=== PATIENT | female | born 1960 | race Caucasian/White ===

== ENCOUNTER 2020-01-24 14:15 | Observation (INO) | payer OTHER, MEDICAID, SELFPAY ==
[2020-01-24] VITALS (8 sets, daily range): BP systolic 130–164; BP diastolic 72–92; PULSE 62–92; RESP 12–20; TEMP 35.3–37.2; O2SAT 91–100; BMI 18.0
[2020-01-24 15:05] LABS: Add Manual Diff / Slide Review NO; Basophils Absolute Auto 100 /uL (0-100); Basophils Percent Auto 1.1 % (0-2); Eosinophils Absolute Auto 100 /uL (0-450); Eosinophils Percent Auto 1.5 % (2-4); Hematocrit 22.9 % (36-46); Lymphocytes Absolute Auto 2600 /uL (1100-4500); Mean Corpuscular HGB Conc 29.1 % (30-36); Mean Corpuscular Hemoglobin 18.1 PG (26-34); Mean Corpuscular Volume 62.2 fL (80-100); Monocytes Absolute Auto 500 /uL (0-900); Monocytes Percent Auto 8.4 % (3-14); Neutrophils Absolute Auto 2700 /uL (1500-7000); Platelet Count 300 X10^3/uL (150-400); Red Blood Cell Count 3.69 X10^6/uL (4.0-5.2); Red Cell Distribution Width 22.1 % (11.6-14.8)
[2020-01-24 15:10] LABS: Hemoglobin 6.7 g/dL (12.0-16.0); INR 1.1 (0.9-1.3); Prothrombin Time 12.6 SECONDS (10.1-12.7)
[2020-01-24 15:13] LABS: PTT Partial Thromboplastin Tim 31 SECONDS (26.4-36.2)
[2020-01-24 15:15] LABS: Alanine Aminotransferase 12 IU/L (<35); Albumin 4.1 g/dL (3.5-5.0); Albumin Globulin Ratio 1.2 (1.0-2.8); Alkaline Phosphatase 96 U/L (38-126); Amylase 138 U/L (30-110); Aspartate Aminotransferase 23 IU/L (14-36); Bilirubin Total 0.5 mg/dL (0.2-1.3); Blood Urea Nitrogen 8 mg/dL (7-17); Calcium 9.1 mg/dL (8.4-10.2); Carbon Dioxide 25 mmol/L (22-32); Chloride 106 mmol/L (98-107); Creatine Kinase 38 U/L (30-135); Estimated Glomerular Filt Rate > 60.0 mL/min (>60); Globulin 3.3 g/dL (1.7-4.1); Glucose 99 mg/dL (70-100); HEMOLYSIS < 15 (0-50); Lipase 140 U/L (23-300); Potassium 3.9 mmol/L (3.4-5.1); Sodium 139 mmol/L (137-145); Total Protein 7.4 g/dL (6.3-8.2)
[2020-01-24 15:22] LABS: Hypochromasia 2+; Stomatocytes 1+; Target Cells 1+
[2020-01-24 15:23] LABS: Anisocytosis 2+
[2020-01-24 15:24] LABS: Microcytosis 2+; Ovalocytes 2+; Platelet Estimate Adequate on smear; Poikilocytosis 1+; Spherocytes 1+
[2020-01-24 15:26] LABS: Troponin I < 0.012 ng/mL (0.01-0.034)
[2020-01-24 15:57] LABS: Thyroid Stimulating Hormone 1.39 uIU/mL (0.47-4.68)
--- NOTE | 2020-01-24 16:22 | DI.CT.S_ITS ---
PROCEDURE: CT ABDOMEN PELVIS W CON INDICATIONS: abd pain TECHNIQUE: After the administration of intravenous contrast, 5 mm thick sections acquired from the diaphragm to the symphysis. 5 mm coronal and sagittal reformats were acquired. For radiation dose reduction, the following was used: automated exposure control, adjustment of mA and/or kV according to patient size. COMPARISON: None. FINDINGS: Image quality: Excellent. ABDOMEN: Lung bases: Lung bases are clear. Heart size is normal. Solid organs: Liver is normal in size and enhancement. Gallbladder appears normal. Biliary system is non dilated. Pancreas enhances normally. Spleen is normal in size and enhancement. No adrenal nodules. Kidneys demonstrate normal size and enhancement, without hydronephrosis. Peritoneum and bowel: Bowel loops demonstrate normal wall thickness and caliber. No free fluid or air. There is generalize colonic obstipation. Nodes and vessels: No retroperitoneal or mesenteric adenopathy by size criteria. Aorta and inferior vena cava are normal in size. Miscellaneous: No ventral hernias. PELVIS: Genitourinary: Bladder wall thickness is normal. Miscellaneous: No inguinal hernias or adenopathy. Generalize colonic obstipation. Bones: No suspicious bony lesions. No vertebral body compression fractures. IMPRESSION: Generalized colonic obstipation, no acute disease found. No alternative etiology for generalized malaise is found by this study. Dictated by: Serge Birmingham M.D. on 01/24/2020 at 17:27 Approved by: Serge Birmingham M.D. on 01/24/2020 at 17:28
[2020-01-24 16:37] LABS: Ethanol (ETOH) < 10 mg/dL
[2020-01-24] MEDS: ONDANSETRON 4 MG/2 ML INJ IV (16:56)
[2020-01-24] MEDS: SODIUM CHLORIDE 0.9% 1,000 ML 1000 ML IV (17:54)
[2020-01-24] MEDS: HYDROMORPHONE 0.5 MG INJ IV (19:13)
[2020-01-24] MEDS: PANTOPRAZOLE 40 MG VIAL IV (19:13)
--- NOTE | 2020-01-24 19:55 | PM.CN ---
History of Present Illness Consult details Date Patient Seen: 01/24/20 Time Patient Seen: 19:55 Chief complaint: Stomach pain, weight loss Reason for consult: Possible GI bleed/anemia Requesting provider: Cady Alex Narrative: The patient is a woman who is been having various abdominal stomach complaints. She has lost 20 lb over the last month according to her and her daughter who was with her. The patient admits to having abdominal pain in then intermittent black bowel movements when she is constipated. She also sees blood occasionally. She actually had a colonoscopy last year when she was in [place]. She reports that it was normal but they told her they wanted to repeated in 6 months. She does not recall exactly where an [facility] she had the test done or who performed it. She is unaware of having any records related to it that might give us some information. She is not on the Internet with it. Her pain is nonspecific and crampy in nature frequently. It is mostly left abdomen but sometimes right abdomen. She denies any abdominal procedures. She has had no hematemesis. Meds Home Medications and Allergies Home Medications Medication Instructions Recorded Confirmed Type No Known Home Medications 01/24/20 01/24/20 History Allergies Allergy/AdvReac Type Severity Reaction Status Date / Time No Known Drug Allergies Allergy Verified 01/24/20 15:16 Review of Systems Review of Systems Narrative: Patient denies visual difficulties or double vision. No swallowing problems. She has been feeling generally weak and fatigued and wants to sleep a lot. Not always hungry. Has lost 20 lb due to abdominal discomfort and lack of appetite. No tooth aches. No asthma or cough. No heart problems or chest pain. No murmurs. No problems with kidney stones or blood in her urine. No seizures or blackouts. She drinks about 2-3 cans of beer every other day. Sometimes daily. Very long history of smoking quit 2 months ago. Exam Vital Signs (past 8 hours): - 01/24/20 14:29 01/24/20 17:15 Temperature 98.3 F Pulse Rate 91 H 92 H Respiratory Rate 12 16 Blood Pressure 164/92 H Blood Pressure [Right Arm] 140/85 Pulse Oximetry 91 100 Oxygen Delivery Method Room Air Narrative Exam Narrative: Very thin woman no apparent distress. Her eyes are nonicteric. Pupils equal round reactive to light ears without lesion. Skin is pale. No open wounds appreciated. Oral mucosa is dry. No open lesions. I do not feel any nodes in the neck or supraclavicular areas. Note masses. Lungs are clear to auscultation without rales or rhonchi. Equal percussion. Heart regular rate and rhythm. She has a split S2. Her abdomen is scaphoid soft. Mild tenderness in the left abdomen. No palpable masses. No hernias appreciated. Patient is alert and oriented. A bit anxious. Speech rate and content are appropriate and her affect is appropriate until I began to talk to her about some interventions. Please see below. Objective Imaging CT scan - abdomen: My impression: Large amount of stool in the colon. I do not really see any other abnormalities. Very little fat. Labs Result Diagrams: 01/24/20 14:55 01/24/20 14:55 Labs: Laboratory Results - last 24 hr 01/24/20 01/24/20 01/24/20 14:55 14:55 14:55 WBC 6.0 RBC 3.69 L Hgb 6.7 L* Hct 22.9 L MCV 62.2 L MCH 18.1 L MCHC 29.1 L RDW 22.1 H Plt Count 300 Neut % (Auto) 45.0 L Lymph % (Auto) 44.0 H Crosby % (Auto) 8.4 Eos % (Auto) 1.5 L Baso % (Auto) 1.1 Neut # (Auto) 2700 Lymph # (Auto) 2600 Crosby # (Auto) 500 Eos # (Auto) 100 Baso # (Auto) 100 Platelet Estimate Adequate on smear RBC Morphology See below Hypochromasia 2+ H Poikilocytosis 1+ H Anisocytosis 2+ H Microcytosis 2+ H Spherocytes 1+ H Target Cells 1+ H Ovalocytes 2+ H Stomatocytes 1+ H PT 12.6 INR 1.1 APTT 31 Sodium 139 Potassium 3.9 Chloride 106 Carbon Dioxide 25 BUN 8 Creatinine 0.50 L Estimated GFR > 60.0 BUN/Creatinine Ratio 16.0 Glucose 99 Calcium 9.1 Total Bilirubin 0.5 AST 23 ALT 12 Alkaline Phosphatase 96 Total Creatine Kinase 38 CK-MB (CK-2) TNP CK-MB (CK-2) Rel Index TNP Troponin I < 0.012 Total Protein 7.4 Albumin 4.1 Globulin 3.3 Albumin/Globulin Ratio 1.2 Amylase 138 H Lipase 140 TSH Ethyl Alcohol Blood Type Antibody Screen Crossmatch 01/24/20 01/24/20 01/24/20 14:55 14:55 14:55 WBC RBC Hgb Hct MCV MCH MCHC RDW Plt Count Neut % (Auto) Lymph % (Auto) Crosby % (Auto) Eos % (Auto) Baso % (Auto) Neut # (Auto) Lymph # (Auto) Crosby # (Auto) Eos # (Auto) Baso # (Auto) Platelet Estimate RBC Morphology Hypochromasia Poikilocytosis Anisocytosis Microcytosis Spherocytes Target Cells Ovalocytes Stomatocytes PT INR APTT Sodium Potassium Chloride Carbon Dioxide BUN Creatinine Estimated GFR BUN/Creatinine Ratio Glucose Calcium Total Bilirubin AST ALT Alkaline Phosphatase Total Creatine Kinase CK-MB (CK-2) CK-MB (CK-2) Rel Index Troponin I Total Protein Albumin Globulin Albumin/Globulin Ratio Amylase Lipase TSH 1.39 Ethyl Alcohol < 10 Blood Type O Positive Antibody Screen Negative Crossmatch See Detail Assessment & Plan Assessment & Plan narrative: Patient with significant anemia and abdominal complaints. She had a recent CT scan within the last year. She reports that it was normal. The patient has intermittent melena. Intermittent abdominal pain that is crampy in nature and suffers from constipation at times. I began to talk to her about having an upper endoscopy. She completely decompensated and became tearful and crying out and that she did not want anything put in her throat. I tried to calm her and explained to her that this was far less invasive or painful or problematic than having a colonoscopy but she would not here of it. She continued to insist that she would not have it done. She would not have anything put down her throat. It is not clear to me that she needs a colonoscopy and I would like to obtain that record before beginning of to do 1 on her. I do think she would definitely benefit from an EGD but if she continues to refuse then an upper GI could be ordered. The only problem with such a test is that if any other test needs to be done that material would have to clear her intestinal tract before that could happen. If they could do a useful study with a water-soluble material it may well act as a cathartic and clear her colon and allow us to further evaluate her. I informed the patient that my partner probably Dr. Morse would be looking in on her tomorrow.
--- NOTE | 2020-01-24 20:17 | ED.ABDPAIN ---
HPI - Abdominal Pain <MARIAELENA Maxwell - Last Filed: 01/24/20 20:28> General Chief Complaint: Abdominal Pain Stated Complaint: Stomach pain, weight loss Time Seen by Provider: 01/24/20 14:24 Source: patient and family Mode of arrival: Ambulatory Limitations: no limitations History of Present Illness HPI narrative: The patient is a 59-year-old female with history of hepatitis-A, who drinks 3-4 beers a night who presents with a chief complaint of abdominal pain for the past several months. She states that her stomach has been ?bubbling.She states that she had a colonoscopy where they recommended 6 month follow-up colonoscopy but she did not do that because of lack of insurance. She complains of nausea, no vomiting, no fevers. She complains of epigastric tenderness but no chest pain or shortness of breath. She presents with her daughter. She denies any daily medications, denies any surgical history denies any abdominal history. Related Data Home Medications Medication Instructions Recorded Confirmed No Known Home Medications 01/24/20 01/24/20 Allergies Allergy/AdvReac Type Severity Reaction Status Date / Time No Known Drug Allergies Allergy Verified 01/24/20 15:16 Review of Systems <MARIAELENA Maxwell - Last Filed: 01/24/20 20:28> Review of Systems Narrative: GENERAL: Denies chills, fatigue, malaise, fever, sweats. HEENT: Denies sinus pain, ear pain, sore throat, difficulty swallowing, dizziness. RESPIRATORY: Denies dyspnea, cough, wheezing, hemoptysis, sputum. CARDIOVASCULAR: Denies chest pain, palpitations, orthopnea, edema, GASTROINTESTINAL: See HPI : Denies dysuria, frequency, incontinence, hematuria, urinary retention. MUSCULOSKELETAL: denies weakness, joint pain, or bony pain SKIN: Denies rash, skin lesions, or other NEUROLOGIC: Denies weakness, headache, numbness, change in speech, confusion, seizures, incoordination. PSYCHIATRIC: No concerning psychosocial issues. 12 point review of systems is negative except for those stated above Patient History <MARIAELENA Maxwell - Last Filed: 01/24/20 20:28> Medical History (Updated 01/24/20 @ 21:36 by MARIAELENA Maxwell) Constipation (Acute) Postmenopausal (Acute) Surgical History (Updated 01/24/20 @ 21:29 by MAHAMED Chavez) History of colonoscopy (Acute) Family History (Updated 01/24/20 @ 21:31 by MAHAMED Chavez) Mother Cancer Lung disease Smoker Father Schizophrenia Brother Homeless Schizophrenia Substance abuse Social History household members: family Smoking Status: Former smoker Tobacco: How many years used: 40 alcohol intake: current Smoking Status: Former smoker (Stop smoking 2 months ago. Began at age 17) Exam <MARIAELENA Maxwell - Last Filed: 01/24/20 20:28> Narrative Exam Narrative: GENERAL: Pale female lying on stretcher, appears older than stated age HEAD: Atraumatic. Normocephalic. No temporal or scalp tenderness. EYES: Pupils equal round and reactive. Extraocular motions intact. No scleral icterus. No injection or drainage. ENT: Nose without bleeding, purulent drainage or septal hematoma. Throat without erythema, tonsillar hypertrophy or exudate. Uvula midline. Airway patent. NECK: Trachea midline. No JVD or lymphadenopathy. Supple, nontender, no meningeal signs. CARDIOVASCULAR: Regular rate and rhythm RESPIRATORY: Clear to auscultation. Breath sounds equal bilaterally. No wheezes, rales, or rhonchi. No cough. No increased respiratory effort. No accessory muscle use GASTROINTESTINAL: Abdomen soft, diffusely tender, nondistended. No hepato-splenomegaly, or palpable masses. No guarding. Active bowel sounds all 4 quadrants Heme-positive stool. Done with Luis DELGADO at bedside. EXTREMITIES: No clubbing, cyanosis, or edema. No joint tenderness, effusion, or edema noted. BACK: Nontender without deformity or crepitance. No flank tenderness. NEURO: AOx3. SKIN: No rash or erythema on visible skin. Initial Vital Signs Initial Vital Signs: Vital Signs Temperature 98.3 F 01/24/20 14:29 Pulse Rate 91 H 01/24/20 14:29 Respiratory Rate 12 01/24/20 14:29 Blood Pressure 164/92 H 01/24/20 14:29 Pulse Oximetry 91 01/24/20 14:29 <Cady Cevallos DO - Last Filed: 01/25/20 19:23> Initial Vital Signs Initial Vital Signs: Vital Signs Temperature 98.3 F 01/24/20 14:29 Pulse Rate 91 H 01/24/20 14:29 Respiratory Rate 12 01/24/20 14:29 Blood Pressure 164/92 H 01/24/20 14:29 Pulse Oximetry 91 01/24/20 14:29 Procedures <MARIAELENA Maxwell - Last Filed: 01/24/20 20:28> Stool Hemoccult Procedural Steps Taken: stool placed in appropriate test area, developer placed on stool and control areas and controls appropriately positive and negative Hemoccult result: positive Course <MARIAELENA Maxwell - Last Filed: 01/24/20 20:28> Orders Ordered: Acetaminophen (Tylenol) 650 mg PO Q6HR PRN PRN Reason: Fever > 100.4 Last Admin: 01/25/20 14:00 Dose: 650 mg Documented by: POWER Acetaminophen (Tylenol) 975 mg PO Q8H PRN PRN Reason: Pain, Mild (1-3) Bisacodyl (Dulcolax) 10 mg DC DAILY PRN PRN Reason: Constipation Docusate Sodium (Colace) 100 mg PO BID [facility] Last Admin: 01/25/20 10:47 Dose: 100 mg Documented by: Admin: 01/24/20 21:55 Dose: 100 mg Documented by: MJUDD Ferrous Sulfate (Ferrous Sulfate) 325 mg PO DAILY [facility] Pantoprazole Sodium (Protonix) 40 mg IV BID [facility] Last Admin: 01/25/20 10:48 Dose: 40 mg Documented by: JOY Polyethylene Glycol (Miralax) 17 gm PO DAILY [facility] Discontinued Medications Acetaminophen (Tylenol) 650 mg PO Q6HR PRN PRN Reason: Fever/Mild Pain (1-3) Bisacodyl (Dulcolax) 10 mg DC NOW ONE Stop: 01/24/20 21:16 Last Admin: 01/24/20 23:18 Dose: Not Given Documented by: DIXIE Bisacodyl (Dulcolax) 10 mg PO NOW ONE Stop: 01/25/20 00:09 Last Admin: 01/25/20 00:33 Dose: 10 mg Documented by: DIXIE Ferrous Sulf[facility] ([facility]ous Sulfate) [facility] Last Admin: 01/25/20 18:02 Dose: Not Given Documented by: Admin: 01/25/20 10:47 Dose: 325 mg Documented by: JOY Hydromorphone HCl (Dilaudid) 0.5 mg IV NOW ONE Stop: 01/24/20 18:59 Last Admin: 01/24/20 19:13 Dose: 0.5 mg Documented by: EVELYN Sodium Chloride (Normal Saline 0.9%) 1,000 mls @ 1,000 mls/hr IV BOLUS ONE Stop: 01/24/20 18:06 Last Infusion: 01/24/20 20:43 Dose: 0 mls/hr Documented by: Admin: 01/24/20 17:54 Dose: 1,000 mls/hr Documented by: EVELYN Lactated Ringer's (Lactated Ringers) 1,000 mls @ 100 mls/hr IV CONT [facility] Ketorolac Tromethamine (Toradol) 15 mg IV Q6HR PRN PRN Reason: Pain, Moderate (4-6) Stop: 01/29/20 21:11 Ondansetron HCl (Zofran) 4 mg IV NOW ONE Stop: 01/24/20 16:47 Last Admin: 01/24/20 16:56 Dose: 4 mg Documented by: EVELYN Pantoprazole Sodium (Protonix) 40 mg IV NOW ONE Stop: 01/24/20 18:59 Last Admin: 01/24/20 19:13 Dose: 40 mg Documented by: EVELYN Pantoprazole Sodium (Protonix) 40 mg PO BID [facility] Sodium Biphosphate/Sodium Phosphate (Fleet Enema) 1 each DC NOW ONE Stop: 01/24/20 22:10 Last Admin: 01/24/20 22:47 Dose: 1 each Documented by: MJUDD Vital Signs Vital signs: Vital Signs - 8 hr 01/24/20 14:29 01/24/20 17:15 01/24/20 20:15 Temperature 98.3 F 98.4 F Pulse Rate 91 H 92 H 79 Respiratory Rate 12 16 15 Blood Pressure 164/92 H 131/77 Blood Pressure [Right Arm] 140/85 Pulse Oximetry 91 100 <Cady Cevallos DO - Last Filed: 01/25/20 19:23> Orders Ordered: Acetaminophen (Tylenol) 650 mg PO Q6HR PRN PRN Reason: Fever > 100.4 Last Admin: 01/25/20 14:00 Dose: 650 mg Documented by: POWER Acetaminophen (Tylenol) 975 mg PO Q8H PRN PRN Reason: Pain, Mild (1-3) Bisacodyl (Dulcolax) 10 mg DC DAILY PRN PRN Reason: Constipation Docusate Sodium (Colace) 100 mg PO BID [facility] Last Admin: 01/25/20 10:47 Dose: 100 mg Documented by: Admin: 01/24/20 21:55 Dose: 100 mg Documented by: MJUDD Ferrous Sulfate (Ferrous Sulfate) 325 mg PO DAILY [facility] Pantoprazole Sodium (Protonix) 40 mg IV BID [facility] Last Admin: 01/25/20 10:48 Dose: 40 mg Documented by: JOY Polyethylene Glycol (Miralax) 17 gm PO DAILY [facility] Discontinued Medications Acetaminophen (Tylenol) 650 mg PO Q6HR PRN PRN Reason: Fever/Mild Pain (1-3) Bisacodyl (Dulcolax) 10 mg DC NOW ONE Stop: 01/24/20 21:16 Last Admin: 01/24/20 23:18 Dose: Not Given Documented by: DIXIE Bisacodyl (Dulcolax) 10 mg PO NOW ONE Stop: 01/25/20 00:09 Last Admin: 01/25/20 00:33 Dose: 10 mg Documented by: DIXIE Ferrous Sulfate (Ferrous Sulfate) 325 mg PO BIDWM [facility] Last Admin: 01/25/20 18:02 Dose: Not Given Documented by: Admin: 01/25/20 10:47 Dose: 325 mg Documented by: JOY Hydromorphone HCl (Dilaudid) 0.5 mg IV NOW ONE Stop: 01/24/20 18:59 Last Admin: 01/24/20 19:13 Dose: 0.5 mg Documented by: EVELYN Sodium Chloride (Normal Saline 0.9%) 1,000 mls @ 1,000 mls/hr IV BOLUS ONE Stop: 01/24/20 18:06 Last Infusion: 01/24/20 20:43 Dose: 0 mls/hr Documented by: Admin: 01/24/20 17:54 Dose: 1,000 mls/hr Documented by: EVELYN Lactated Ringer's (Lactated Ringers) 1,000 mls @ 100 mls/hr IV CONT [facility] Ketorolac Tromethamine (Toradol) 15 mg IV Q6HR PRN PRN Reason: Pain, Moderate (4-6) Stop: 01/29/20 21:11 Ondansetron HCl (Zofran) 4 mg IV NOW ONE Stop: 01/24/20 16:47 Last Admin: 01/24/20 16:56 Dose: 4 mg Documented by: EVELYN Pantoprazole Sodium (Protonix) 40 mg IV NOW ONE Stop: 01/24/20 18:59 Last Admin: 01/24/20 19:13 Dose: 40 mg Documented by: EVELYN Pantoprazole Sodium (Protonix) 40 mg PO BID [facility] Sodium Biphosphate/Sodium Phosphate (Fleet Enema) 1 each DC NOW ONE Stop: 01/24/20 22:10 Last Admin: 01/24/20 22:47 Dose: 1 each Documented by: MJUDD Vital Signs Vital signs: Vital Signs - 8 hr 01/24/20 14:29 01/24/20 17:15 01/24/20 20:15 Temperature 98.3 F 98.4 F Pulse Rate 91 H 92 H 79 Respiratory Rate 12 16 15 Blood Pressure 164/92 H 131/77 Blood Pressure [Right Arm] 140/85 Pulse Oximetry 91 100 MDM - Abdominal Pain <MARIAELENA Maxwell - Last Filed: 01/24/20 20:28> Lab Data Result diagrams: 01/25/20 06:24 01/25/20 06:24 Labs: Lab Results 01/24/20 01/24/20 01/24/20 Range/Units 14:55 14:55 14:55 WBC 6.0 (4.5-11.0) X10^3/uL RBC 3.69 L (4.0-5.2) X10^6/uL Hgb 6.7 L* (12.0-16.0) g/dL Hct 22.9 L (36-46) % MCV 62.2 L (80-100) fL MCH 18.1 L (26-34) PG MCHC 29.1 L (30-36) % RDW 22.1 H (11.6-14.8) % Plt Count 300 (150-400) X10^3/uL Neut % (Auto) 45.0 L (50-75) % Lymph % (Auto) 44.0 H (25-40) % Banner % (Auto) 8.4 (3-14) % Eos % (Auto) 1.5 L (2-4) % Baso % (Auto) 1.1 (0-2) % Neut # (Auto) 2700 (2538-7110) /uL Lymph # (Auto) 2600 (7366-2935) /uL Banner # (Auto) 500 (0-900) /uL Eos # (Auto) 100 (0-450) /uL Baso # (Auto) 100 (0-100) /uL Platelet Estimate Adequate on smear RBC Morphology See below Hypochromasia 2+ H Poikilocytosis 1+ H Anisocytosis 2+ H Microcytosis 2+ H Spherocytes 1+ H Target Cells 1+ H Ovalocytes 2+ H Stomatocytes 1+ H PT 12.6 (10.1-12.7) SECONDS INR 1.1 (0.9-1.3) APTT 31 (26.4-36.2) SECONDS Sodium 139 (137-145) mmol/L Potassium 3.9 (3.4-5.1) mmol/L Chloride 106 (98-107) mmol/L Carbon Dioxide 25 (22-32) mmol/L BUN 8 (7-17) mg/dL Creatinine 0.50 L (0.52-1.04) mg/dL Estimated GFR > 60.0 (>60) mL/min BUN/Creatinine Ratio 16.0 (6-22) Glucose 99 (70-100) mg/dL Calcium 9.1 (8.4-10.2) mg/dL Magnesium (1.6-2.3) mg/dL Total Bilirubin 0.5 (0.2-1.3) mg/dL AST 23 (14-36) IU/L ALT 12 (<35) IU/L Alkaline Phosphatase 96 (38-126) U/L Total Creatine Kinase 38 (30-135) U/L CK-MB (CK-2) TNP CK-MB (CK-2) Rel Index TNP Troponin I < 0.012 (0.01-0.034) ng/mL Total Protein 7.4 (6.3-8.2) g/dL Albumin 4.1 (3.5-5.0) g/dL Globulin 3.3 (1.7-4.1) g/dL Albumin/Globulin Ratio 1.2 (1.0-2.8) Amylase 138 H (30-110) U/L Lipase 140 (23-300) U/L TSH (0.47-4.68) uIU/mL Ethyl Alcohol ( - 10) mg/dL Blood Type Antibody Screen Crossmatch 01/24/20 01/24/20 01/24/20 Range/Units 14:55 14:55 14:55 WBC (4.5-11.0) X10^3/uL RBC (4.0-5.2) X10^6/uL Hgb (12.0-16.0) g/dL Hct (36-46) % MCV (80-100) fL MCH (26-34) PG MCHC (30-36) % RDW (11.6-14.8) % Plt Count (150-400) X10^3/uL Neut % (Auto) (50-75) % Lymph % (Auto) (25-40) % Banner % (Auto) (3-14) % Eos % (Auto) (2-4) % Baso % (Auto) (0-2) % Neut # (Auto) (1279-2784) /uL Lymph # (Auto) (2318-7239) /uL Banner # (Auto) (0-900) /uL Eos # (Auto) (0-450) /uL Baso # (Auto) (0-100) /uL Platelet Estimate RBC Morphology Hypochromasia Poikilocytosis Anisocytosis Microcytosis Spherocytes Target Cells Ovalocytes Stomatocytes PT (10.1-12.7) SECONDS INR (0.9-1.3) APTT (26.4-36.2) SECONDS Sodium (137-145) mmol/L Potassium (3.4-5.1) mmol/L Chloride (98-107) mmol/L Carbon Dioxide (22-32) mmol/L BUN (7-17) mg/dL Creatinine (0.52-1.04) mg/dL Estimated GFR (>60) mL/min BUN/Creatinine Ratio (6-22) Glucose (70-100) mg/dL Calcium (8.4-10.2) mg/dL Magnesium (1.6-2.3) mg/dL Total Bilirubin (0.2-1.3) mg/dL AST (14-36) IU/L ALT (<35) IU/L Alkaline Phosphatase (38-126) U/L Total Creatine Kinase (30-135) U/L CK-MB (CK-2) CK-MB (CK-2) Rel Index Troponin I (0.01-0.034) ng/mL Total Protein (6.3-8.2) g/dL Albumin (3.5-5.0) g/dL Globulin (1.7-4.1) g/dL Albumin/Globulin Ratio (1.0-2.8) Amylase (30-110) U/L Lipase (23-300) U/L TSH 1.39 (0.47-4.68) uIU/mL Ethyl Alcohol < 10 ( - 10) mg/dL Blood Type O Positive Antibody Screen Negative Crossmatch See Detail 01/24/20 Range/Units 14:55 WBC (4.5-11.0) X10^3/uL RBC (4.0-5.2) X10^6/uL Hgb (12.0-16.0) g/dL Hct (36-46) % MCV (80-100) fL MCH (26-34) PG MCHC (30-36) % RDW (11.6-14.8) % Plt Count (150-400) X10^3/uL Neut % (Auto) (50-75) % Lymph % (Auto) (25-40) % Banner % (Auto) (3-14) % Eos % (Auto) (2-4) % Baso % (Auto) (0-2) % Neut # (Auto) (0873-0263) /uL Lymph # (Auto) (8643-7172) /uL Banner # (Auto) (0-900) /uL Eos # (Auto) (0-450) /uL Baso # (Auto) (0-100) /uL Platelet Estimate RBC Morphology Hypochromasia Poikilocytosis Anisocytosis Microcytosis Spherocytes Target Cells Ovalocytes Stomatocytes PT (10.1-12.7) SECONDS INR (0.9-1.3) APTT (26.4-36.2) SECONDS Sodium (137-145) mmol/L Potassium (3.4-5.1) mmol/L Chloride (98-107) mmol/L Carbon Dioxide (22-32) mmol/L BUN (7-17) mg/dL Creatinine (0.52-1.04) mg/dL Estimated GFR (>60) mL/min BUN/Creatinine Ratio (6-22) Glucose (70-100) mg/dL Calcium (8.4-10.2) mg/dL Magnesium 2.1 (1.6-2.3) mg/dL Total Bilirubin (0.2-1.3) mg/dL AST (14-36) IU/L ALT (<35) IU/L Alkaline Phosphatase (38-126) U/L Total Creatine Kinase (30-135) U/L CK-MB (CK-2) CK-MB (CK-2) Rel Index Troponin I (0.01-0.034) ng/mL Total Protein (6.3-8.2) g/dL Albumin (3.5-5.0) g/dL Globulin (1.7-4.1) g/dL Albumin/Globulin Ratio (1.0-2.8) Amylase (30-110) U/L Lipase (23-300) U/L TSH (0.47-4.68) uIU/mL Ethyl Alcohol ( - 10) mg/dL Blood Type Antibody Screen Crossmatch Point of care testing: Urine Dip Bedside Urine Glucose Negative Bedside Urine Bilirubin - Negative Bedside Urine Ketone - Negative Urine Specific Carter 1.015 Bedside Urine Occult Blood - Negative Bedside Urine pH 6.0 Bedside Urine Protein - Negative Bedside Urine Urobilinogen - Negative Bedside Urine Nitrite - Negative Bedside Urine Leukocytes - Negative Esterase Imaging Data CT scan - abdomen/pelvis: Radiologist's Impression: [facility] [address] [place] [id number] [address] Scan Report Signed Patient: Tiki Evans [facility]#: [id number] : [id number]:[id number] Age/Sex: 59 / FDate of Service: 01/24/20 Loc: ED Accession Number: [id number] Procedure: CT abdomen pelvis w con Ordering Provider: Cady Alex [facility]- PROCEDURE: CT ABDOMEN PELVIS W CON INDICATIONS: abd pain TECHNIQUE: After the administration of intravenous contrast, 5 mm thick sections acquired from the diaphragm to the symphysis. 5 mm coronal and sagittal reformats were acquired. For radiation dose reduction, the following was used: automated exposure control, adjustment of mA and/or kV according to patient size. COMPARISON: None. FINDINGS: Image quality: Excellent. ABDOMEN: Lung bases: Lung bases are clear. Heart size is normal. Solid organs: Liver is normal in size and enhancement. Gallbladder appears normal. Biliary system is non dilated. Pancreas enhances normally. Spleen is normal in size and enhancement. No adrenal nodules. Kidneys demonstrate normal size and enhancement, without hydronephrosis. Peritoneum and bowel: Bowel loops demonstrate normal wall thickness and caliber. No free fluid or air. There is generalize colonic obstipation. Nodes and vessels: No retroperitoneal or mesenteric adenopathy by size criteria. Aorta and inferior vena cava are normal in size. Miscellaneous: No ventral hernias. PELVIS: Genitourinary: Bladder wall thickness is normal. Miscellaneous: No inguinal hernias or adenopathy. Generalize colonic obstipation. Bones: No suspicious bony lesions. No vertebral body compression fractures. IMPRESSION: Generalized colonic obstipation, no acute disease found. No alternative etiology for generalized malaise is found by this study. Dictated by: Serge Birmingham M.D. on 01/24/2020 at 17:27 Approved by: Serge Birmingham M.D. on 01/24/2020 at 17:28 [facility] Narrative Medical decision making narrative: The patient is a 51-year-old female who presents with a chief complaint of general malaise and fatigue. Her hemoglobin is 6.7 and she has heme-positive stools. However she is hemodynamically stable, not tachycardic, normotensive. Abdominal CT has no acute findings. Contacted Dr. Pickens who is down to evaluate the patient would like her to be admitted on the hospitalist for a scope tomorrow. I spoke with Serge IRBY who is admitting hospitalist overnight who kindly agreed to admit the patient to observation. Patient and family are no questions or concerns and state understanding of admission. Patient was given Protonix in the emergency department, as well as pain medicine and fluids. <Cady Cevallos, DO - Last Filed: 01/25/20 19:23> Lab Data Attestation: I reviewed the patient's lab results. Labs: Lab Results 01/24/20 01/24/20 01/24/20 Range/Units 14:55 14:55 14:55 WBC 6.0 (4.5-11.0) X10^3/uL RBC 3.69 L (4.0-5.2) X10^6/uL Hgb 6.7 L* (12.0-16.0) g/dL Hct 22.9 L (36-46) % MCV 62.2 L (80-100) fL MCH 18.1 L (26-34) PG MCHC 29.1 L (30-36) % RDW 22.1 H (11.6-14.8) % Plt Count 300 (150-400) X10^3/uL Neut % (Auto) 45.0 L (50-75) % Lymph % (Auto) 44.0 H (25-40) % Banner % (Auto) 8.4 (3-14) % Eos % (Auto) 1.5 L (2-4) % Baso % (Auto) 1.1 (0-2) % Neut # (Auto) 2700 (7194-4987) /uL Lymph # (Auto) 2600 (9471-3438) /uL Banner # (Auto) 500 (0-900) /uL Eos # (Auto) 100 (0-450) /uL Baso # (Auto) 100 (0-100) /uL Platelet Estimate Adequate on smear RBC Morphology See below Hypochromasia 2+ H Poikilocytosis 1+ H Anisocytosis 2+ H Microcytosis 2+ H Spherocytes 1+ H Target Cells 1+ H Ovalocytes 2+ H Stomatocytes 1+ H PT 12.6 (10.1-12.7) SECONDS INR 1.1 (0.9-1.3) APTT 31 (26.4-36.2) SECONDS Sodium 139 (137-145) mmol/L Potassium 3.9 (3.4-5.1) mmol/L Chloride 106 (98-107) mmol/L Carbon Dioxide 25 (22-32) mmol/L BUN 8 (7-17) mg/dL Creatinine 0.50 L (0.52-1.04) mg/dL Estimated GFR > 60.0 (>60) mL/min BUN/Creatinine Ratio 16.0 (6-22) Glucose 99 (70-100) mg/dL Calcium 9.1 (8.4-10.2) mg/dL Magnesium (1.6-2.3) mg/dL Total Bilirubin 0.5 (0.2-1.3) mg/dL AST 23 (14-36) IU/L ALT 12 (<35) IU/L Alkaline Phosphatase 96 (38-126) U/L Total Creatine Kinase 38 (30-135) U/L CK-MB (CK-2) TNP CK-MB (CK-2) Rel Index TNP Troponin I < 0.012 (0.01-0.034) ng/mL Total Protein 7.4 (6.3-8.2) g/dL Albumin 4.1 (3.5-5.0) g/dL Globulin 3.3 (1.7-4.1) g/dL Albumin/Globulin Ratio 1.2 (1.0-2.8) Amylase 138 H (30-110) U/L Lipase 140 (23-300) U/L TSH (0.47-4.68) uIU/mL Ethyl Alcohol ( - 10) mg/dL Blood Type Antibody Screen Crossmatch 01/24/20 01/24/20 01/24/20 Range/Units 14:55 14:55 14:55 WBC (4.5-11.0) X10^3/uL RBC (4.0-5.2) X10^6/uL Hgb (12.0-16.0) g/dL Hct (36-46) % MCV (80-100) fL MCH (26-34) PG MCHC (30-36) % RDW (11.6-14.8) % Plt Count (150-400) X10^3/uL Neut % (Auto) (50-75) % Lymph % (Auto) (25-40) % Banner % (Auto) (3-14) % Eos % (Auto) (2-4) % Baso % (Auto) (0-2) % Neut # (Auto) (4859-7292) /uL Lymph # (Auto) (5502-0150) /uL Banner # (Auto) (0-900) /uL Eos # (Auto) (0-450) /uL Baso # (Auto) (0-100) /uL Platelet Estimate RBC Morphology Hypochromasia Poikilocytosis Anisocytosis Microcytosis Spherocytes Target Cells Ovalocytes Stomatocytes PT (10.1-12.7) SECONDS INR (0.9-1.3) APTT (26.4-36.2) SECONDS Sodium (137-145) mmol/L Potassium (3.4-5.1) mmol/L Chloride (98-107) mmol/L Carbon Dioxide (22-32) mmol/L BUN (7-17) mg/dL Creatinine (0.52-1.04) mg/dL Estimated GFR (>60) mL/min BUN/Creatinine Ratio (6-22) Glucose (70-100) mg/dL Calcium (8.4-10.2) mg/dL Magnesium (1.6-2.3) mg/dL Total Bilirubin (0.2-1.3) mg/dL AST (14-36) IU/L ALT (<35) IU/L Alkaline Phosphatase (38-126) U/L Total Creatine Kinase (30-135) U/L CK-MB (CK-2) CK-MB (CK-2) Rel Index Troponin I (0.01-0.034) ng/mL Total Protein (6.3-8.2) g/dL Albumin (3.5-5.0) g/dL Globulin (1.7-4.1) g/dL Albumin/Globulin Ratio (1.0-2.8) Amylase (30-110) U/L Lipase (23-300) U/L TSH 1.39 (0.47-4.68) uIU/mL Ethyl Alcohol < 10 ( - 10) mg/dL Blood Type O Positive Antibody Screen Negative Crossmatch See Detail 01/24/20 Range/Units 14:55 WBC (4.5-11.0) X10^3/uL RBC (4.0-5.2) X10^6/uL Hgb (12.0-16.0) g/dL Hct (36-46) % MCV (80-100) fL MCH (26-34) PG MCHC (30-36) % RDW (11.6-14.8) % Plt Count (150-400) X10^3/uL Neut % (Auto) (50-75) % Lymph % (Auto) (25-40) % Banner % (Auto) (3-14) % Eos % (Auto) (2-4) % Baso % (Auto) (0-2) % Neut # (Auto) (7090-2016) /uL Lymph # (Auto) (5467-2350) /uL Banner # (Auto) (0-900) /uL Eos # (Auto) (0-450) /uL Baso # (Auto) (0-100) /uL Platelet Estimate RBC Morphology Hypochromasia Poikilocytosis Anisocytosis Microcytosis Spherocytes Target Cells Ovalocytes Stomatocytes PT (10.1-12.7) SECONDS INR (0.9-1.3) APTT (26.4-36.2) SECONDS Sodium (137-145) mmol/L Potassium (3.4-5.1) mmol/L Chloride (98-107) mmol/L Carbon Dioxide (22-32) mmol/L BUN (7-17) mg/dL Creatinine (0.52-1.04) mg/dL Estimated GFR (>60) mL/min BUN/Creatinine Ratio (6-22) Glucose (70-100) mg/dL Calcium (8.4-10.2) mg/dL Magnesium 2.1 (1.6-2.3) mg/dL Total Bilirubin (0.2-1.3) mg/dL AST (14-36) IU/L ALT (<35) IU/L Alkaline Phosphatase (38-126) U/L Total Creatine Kinase (30-135) U/L CK-MB (CK-2) CK-MB (CK-2) Rel Index Troponin I (0.01-0.034) ng/mL Total Protein (6.3-8.2) g/dL Albumin (3.5-5.0) g/dL Globulin (1.7-4.1) g/dL Albumin/Globulin Ratio (1.0-2.8) Amylase (30-110) U/L Lipase (23-300) U/L TSH (0.47-4.68) uIU/mL Ethyl Alcohol ( - 10) mg/dL Blood Type Antibody Screen Crossmatch Point of care testing: Urine Dip Bedside Urine Glucose Negative Bedside Urine Bilirubin - Negative Bedside Urine Ketone - Negative Urine Specific Carter 1.015 Bedside Urine Occult Blood - Negative Bedside Urine pH 6.0 Bedside Urine Protein - Negative Bedside Urine Urobilinogen - Negative Bedside Urine Nitrite - Negative Bedside Urine Leukocytes - Negative Esterase MDM Narrative Medical decision making narrative: Patient comes in with back pain, her hemoglobin is in the 6 range. Patient was transfused. General surgery was consulted and CT shows but no clear source of bleeding. Dr. Pickens saw patient in ED. Patient has not had any obvious signs of bleeding and suspected GI bleed. Patient was admitted Discharge Plan Departure Patient Disposition: Admitted as Observation Clinical Impression: Anemia Qualifiers: Anemia type: unspecified type Qualified Code(s): D64.9 - Anemia, unspecified GI (gastrointestinal bleed) Qualifiers: GI bleed type/associated pathology: unspecified gastrointestinal hemorrhage type Qualified Code(s): K92.2 - Gastrointestinal hemorrhage, unspecified Discharge Date/Time: 01/24/20 21:10 Admit Date/Time: 01/24/20 20:27 Admit Provider: Cole Valentine
--- NOTE | 2020-01-24 21:19 | P.HP_ITS ---
History of Present Illness History of Present Illness Date Patient Seen: 01/24/20 Time Patient Seen: 20:52 Chief complaint: Stomach pain, weight loss Narrative: Ms. Tiki Evans is a 59-year-old female with no significant history medical problems who presents to the ER for worsening abdominal pain. The patient reports having abdominal pain for the last 5 months with a decline in general health over the last 1 month. She reports a 20 lb weight loss in last month related to poor oral intake secondary to abdominal pain. She has developed increasing fatigue, indigestion abdominal cramps and gassiness. She describes intermittent dark stools with foul odor and occasional bright red blood that she describes as perhaps a drop. Patient previously had a colonoscopy 1 year ago through [facility] at which time the patient reports the results were negative but was told that she should have a repeat exam in 6 months. Patient endorses a history drinking 3-4 beers per night and has had no complaints nausea vomiting or hematemesis. She has taken nothing at home stating she prefers a natural path. She reports no recent fevers or chills and has no nasal congestion or sore throat. She denies chest pain but has had fleeting episodes of flutters in her chest. She denies shortness of breath or cough and quit smoking 2 months ago before which she was smoking 1/2 pack per day since age 17. She has generalized abdominal discomfort nonfocal after having pain medication. She reports back pain that is worsened when she is tempting stool. She describes irregular stooling that comes in balls and is difficult to pass. 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 Upon arrival to the ER the patient is afebrile with temperature 98.3?, heart rate of 91, blood pressure 164/92, respirations of 12 saturating 91% on room air. Imaging of the abdominal pelvis is obtained with organs appearing normal with no ductal dilatation,: Is described as normal in thickness in caliber with general colonic obstipation. The need EKG is obtained which finds normal sinus rhythm with ventricular rate of 86, no ectopy or block, no evidence of ischemia with good R-wave progression. On laboratory analysis the patient is found to have white count of 6.0, hemoglobin of 6.7, hematocrit of 22.9 and platelets of 300. She has a PT of 12.6, INR 1.1 and PTT of 31. Her electrolytes are within normal limits and she has good renal function with a BUN of 8 and creatinine of 0.5. Her nonfasting glucose is 99. Her liver functions are all within normal range and has a amylase of 138 and lipase of 140. She has a negative troponin at less than 0.012 and her TSH is 1.39. The patient is admitted to the medicine service for GI bleeding with general surgery consult by Dr. Pickens initiated through the ER. Patient History Medical History (Updated 01/24/20 @ 21:36 by LIZ Maxwell) Constipation (Acute) Postmenopausal (Acute) Surgical History (Updated 01/24/20 @ 21:29 by MAHAMED Chavez) History of colonoscopy (Acute) Family & Social History Family History (Updated 01/24/20 @ 21:31 by MAHAMED Chavez) Mother Cancer Lung disease Smoker Father Schizophrenia Brother Homeless Schizophrenia Substance abuse Safety & Behavioral: Feels Safe in Current Yes Environment Been Physically Hurt or No Threatened By a Person Tobacco & Substance use: Smoking Status Former smoker alcohol intake current Comment: The patient just relocated recently to [facility] from [place], [place]. The patient's father had schizophrenia as does her brother who is homeless and has substance abuse. Her mother had breast cancer was a heavy smoker and from lung disease. 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 Smoking: Patient quit smoking 2 months ago before which was smoking 1/2 pack per day for 42 years, 63 pack year smoking history. Alcohol: Patient endorses drinking 3-4 beers per night. Substance use: Patient denies recreation pharmaceuticals, herbal or cannabis products. Advanced directives: The patient does not have a formal advanced directive but states her desire to be FULL CODE. She designates her daughter Madyson to be her surrogate decision maker. Meds Home Medications and Allergies Home Medications Medication Instructions Recorded Confirmed Type No Known Home Medications 01/24/20 01/24/20 History Allergies Allergy/AdvReac Type Severity Reaction Status Date / Time No Known Drug Allergies Allergy Verified 01/24/20 15:16 Review of Systems Review of Systems ROS: Yes All systems reviewed with the patient and are negative except as otherwise documented Exam Vital Signs (past 8 hours): - 01/24/20 14:29 01/24/20 17:15 01/24/20 20:15 Temperature 98.3 F 98.4 F Pulse Rate 91 H 92 H 79 Respiratory Rate 12 16 15 Blood Pressure 164/92 H 131/77 Blood Pressure [Right Arm] 140/85 Pulse Oximetry 91 100 01/24/20 20:36 Temperature 98.0 F Pulse Rate 89 Respiratory Rate 18 Blood Pressure 134/82 Blood Pressure [Right Arm] 134/72 Pulse Oximetry 97 Oxygen Delivery Method Room Air Narrative Exam Narrative: GENERAL APPEARANCE: well developed, malnourished female who appears older than her stated age in no acute distress. HEENT: Normocephalic, PERRLA, conjunctiva clear, sclera anicteric EOMs intact with lateral nystagmus,, no sinus tenderness to percussion, no rhinorrhea, mucous membranes are moist and pink, dentures in place. NECK/THYROID: neck supple, tenderness to palpation over right trapezius, no JVD, no carotid bruit, no thyromegaly, trachea midline. LYMPH NODES: no cervical or supraclavicular lymphadenopathy. SKIN: Pale, warm and dry, no visible lesions, rashes, ulcerations or petechiae. HEART: regular rate and rhythm, S1-S2, subtle systolic murmur without rubs or gallops, brisk capillary refill, no edema LUNGS: clear to auscultation bilaterally, no coarseness crackles or wheezing, no cough present CHEST: Symmetrical movement, no accessory muscle use, good tidal volume. ABDOMEN: Soft, no distention, dull to percussion, generalized abdominal tenderness on palpation, no guarding or peritoneal signs, no organomegaly, no flank tenderness, active bowel tones. EXTREMITIES: moves all extremities, strength is 5/5 and symmetrical, no deformities or joint effusions, no back pain with straight leg raise. NEUROLOGIC: AAO x4, no focal neurologic deficits, cranial nerves II-XII grossly intact, sensation intact to light touch, hearing grossly normal to speech. PSYCH: Anxious, cooperative, stable behavior. Objective Labs Result Diagrams: 01/24/20 14:55 01/24/20 14:55 Labs: Laboratory Results - last 24 hr 01/24/20 01/24/20 01/24/20 14:55 14:55 14:55 WBC 6.0 RBC 3.69 L Hgb 6.7 L* Hct 22.9 L MCV 62.2 L MCH 18.1 L MCHC 29.1 L RDW 22.1 H Plt Count 300 Neut % (Auto) 45.0 L Lymph % (Auto) 44.0 H [place] % (Auto) 8.4 Eos % (Auto) 1.5 L Baso % (Auto) 1.1 Neut # (Auto) 2700 Lymph # (Auto) 2600 [place] # (Auto) 500 Eos # (Auto) 100 Baso # (Auto) 100 Platelet Estimate Adequate on smear RBC Morphology See below Hypochromasia 2+ H Poikilocytosis 1+ H Anisocytosis 2+ H Microcytosis 2+ H Spherocytes 1+ H Target Cells 1+ H Ovalocytes 2+ H Stomatocytes 1+ H PT 12.6 INR 1.1 APTT 31 Sodium 139 Potassium 3.9 Chloride 106 Carbon Dioxide 25 BUN 8 Creatinine 0.50 L Estimated GFR > 60.0 BUN/Creatinine Ratio 16.0 Glucose 99 Calcium 9.1 Total Bilirubin 0.5 AST 23 ALT 12 Alkaline Phosphatase 96 Total Creatine Kinase 38 CK-MB (CK-2) TNP CK-MB (CK-2) Rel Index TNP Troponin I < 0.012 Total Protein 7.4 Albumin 4.1 Globulin 3.3 Albumin/Globulin Ratio 1.2 Amylase 138 H Lipase 140 TSH Ethyl Alcohol Blood Type Antibody Screen Crossmatch 01/24/20 01/24/20 01/24/20 14:55 14:55 14:55 WBC RBC Hgb Hct MCV MCH MCHC RDW Plt Count Neut % (Auto) Lymph % (Auto) [place] % (Auto) Eos % (Auto) Baso % (Auto) Neut # (Auto) Lymph # (Auto) [place] # (Auto) Eos # (Auto) Baso # (Auto) Platelet Estimate RBC Morphology Hypochromasia Poikilocytosis Anisocytosis Microcytosis Spherocytes Target Cells Ovalocytes Stomatocytes PT INR APTT Sodium Potassium Chloride Carbon Dioxide BUN Creatinine Estimated GFR BUN/Creatinine Ratio Glucose Calcium Total Bilirubin AST ALT Alkaline Phosphatase Total Creatine Kinase CK-MB (CK-2) CK-MB (CK-2) Rel Index Troponin I Total Protein Albumin Globulin Albumin/Globulin Ratio Amylase Lipase TSH 1.39 Ethyl Alcohol < 10 Blood Type O Positive Antibody Screen Negative Crossmatch See Detail Assessment & Plan Assessment & Plan narrative: This is a 59-year-old female patient who presents to the ER for abdominal pain. The patient has had no health insurance for the past year and has not sought out medical care for ongoing abdominal pain she has experienced for 5 months. She has had increasing discomfort fatigue with abdominal cramping over the last month with an associated 20 lb weight loss. She describes melanotic stool with foul smell and is found to be severely anemic. 1. Gastrointestinal bleeding, acute, present on admission, active. Patient with symptoms for approximately 1 month with associated abdominal pain, indigestion, stomach cramping, gassiness and fatigue. History of constipation and had colonoscopy 1 year ago, patient states results were normal but told to repeat the exam in 6 months for unknown reason. Patient reports what sounds to be melanotic stool with occasional bright red blood in scant amount, denies hematemesis or hematochezia. CT Abd/Pelvis finds solid organs are normal in appearance, no ductal dilatation, colon appears normal in thickness in caliber with general colonic obstipation. Laboratory finding of severe anemia with a hemoglobin of 6.7, hematocrit of 22.9, platelets adequate 300, MCV is 62.2, MCH is 18.1. No coagulopathy. Reviewed patient with Dr. Pickens who recommended treatment for obstipation and was unsure colonoscopy was indicated and is reluctant to undergo EGD. Patient being transfused 1 unit packed RBCs, will recheck H&H 1 hour post transfusion. Ordered Fleets enema, Dulcolax suppository as needed, ordered Docusate 100 mg twice daily. Ordered ferrous sulfate twice daily with meals. Acetaminophen 975 mg every 8 hours as needed for pain. 2. Alcohol abuse, present on admission, active. Patient endorses history of drinking 3-4 beers daily. Last drink yesterday. Patient denies complaints of headaches or fevers, no nausea or tremulousness. Patient denies ever having withdrawal symptoms. Liver function tests are all within normal limits. Ordered CIWA protocol and to notify provider of CIWA score 6 or greater. 3. Unintentional weight loss, protein malnutrition, present on admission, ac tive. Patient describes a 20 lb weight loss in the last month related to poor appetite secondary to abdominal discomfort. Patient has a BMI of 18.0. Patient on clear liquids and to be NPO at midnight for possible endoscopy in the morning. When eating again will at Ensure to her diet. Dietitian consult for weight loss and low BMI. 4. Past smoker, quit 2 months ago, stable. Patient states she quit smoking 2 months ago cold turkey. Patient has a 63 pack year he smoking history. Denies shortness of breath cough or wheezing. On admission to the ER the patient had an oxygen saturation 91% but has been consistently mid 90s following admission. Will spot check pulse oximetry with oxygen as needed. VTE prophylaxis: SCDs, chemical prophylaxis contraindicated. Diet: Clear liquids now NPO at midnight. IV fluids: Normal saline 100 cc/hour at midnight. The patient is admitted to the hospital for GI bleeding and severe anemia requiring transfusion. The patient is admitted as observation with expected length of stay to be less than 2 midnights. The patient is admitted to the hospital
[2020-01-24 21:37] LABS: Magnesium 2.1 mg/dL (1.6-2.3)
[2020-01-24] MEDS: DOCUSATE 100 MG CAPSULE PO (21:55)
[2020-01-24] MEDS: FLEETS ENEMA 1 EACH PR (22:47)
--- NOTE | 2020-01-24 23:25 | PC.NURSE ---
A&OX3. 99%RA. blood infused. pt tolerated well. notified lab for blood draw at midnight. enema given by student nurse and instructor. RN instructor reports pt has 2 large hemorrhoids. notified RT for the urgent EKG. CIWA: 0. seizure precautions. oriented pt to room. call light in reach. bed alarm active.
[2020-01-24 23:56] LABS: Hemoglobin 7.6 g/dL (12.0-16.0)
[2020-01-25] VITALS (13 sets, daily range): BP systolic 101–126; BP diastolic 62–82; PULSE 64–82; RESP 15–18; TEMP 36.7–37.2; O2SAT 99–100
[2020-01-25] MEDS: BISACODYL 5 MG TABLET 10 MG PO (00:33)
--- NOTE | 2020-01-25 00:46 | PC.NURSE ---
Addendum entered by Theresa Watkins R.N. 01/25/20 06:36: Pt had several watery bowel movements throughout the night. No blood in stool since 2329. Bed alarm set. Seizure precautions in place. CIWA 0. Pt reports no pain at this time. Addendum entered by Theresa Watkins R.N. 01/25/20 02:16: Pt 1pa to bedside commode. A/ox4. Daughter at bedside. Bed alarm set. Pt has no nausea. Slight cramping in ab with movement, resolved with laying down and applying head. CIWA score 0. Pt has no complaints at this time. Serge IRBY VO no start of IV fluids. Original Note: Notified Serge IRBY of HGB of 7.6 HCT of 25. Orders received. Pt asymptomatic
[2020-01-25 06:45] LABS: Alanine Aminotransferase 12 IU/L (<35); Albumin 3.5 g/dL (3.5-5.0); Albumin Globulin Ratio 1.2 (1.0-2.8); Alkaline Phosphatase 70 U/L (38-126); Aspartate Aminotransferase 19 IU/L (14-36); Bilirubin Total 0.7 mg/dL (0.2-1.3); Blood Urea Nitrogen 5 mg/dL (7-17); Calcium 8.7 mg/dL (8.4-10.2); Carbon Dioxide 25 mmol/L (22-32); Chloride 108 mmol/L (98-107); Estimated Glomerular Filt Rate > 60.0 mL/min (>60); Glucose 105 mg/dL (70-100); HEMOLYSIS < 15 (0-50); Potassium 3.9 mmol/L (3.4-5.1); Sodium 140 mmol/L (137-145); Total Protein 6.5 g/dL (6.3-8.2)
[2020-01-25 08:43] LABS: Hematocrit 26.5 % (36-46); Mean Corpuscular HGB Conc 30.3 % (30-36); Mean Corpuscular Hemoglobin 20.4 PG (26-34); Mean Corpuscular Volume 67.3 fL (80-100); Platelet Count 259 X10^3/uL (150-400); Red Blood Cell Count 3.94 X10^6/uL (4.0-5.2); White Blood Cell Count 4.7 X10^3/uL (4.5-11.0)
[2020-01-25 08:44] LABS: Add Manual Diff / Slide Review YES
--- NOTE | 2020-01-25 08:52 | P.PN_ITS ---
Subjective Subjective Date Patient Seen: 01/25/20 Time Patient Seen: 08:52 Interval history: No acute overnight events. No emesis. No bloody bowel movements. Exam Vital Signs (past 8 hours): - 01/25/20 02:02 01/25/20 05:18 01/25/20 06:00 Temperature 98.7 F Pulse Rate 64 Respiratory Rate 16 Blood Pressure 112/71 Pulse Oximetry 100 100 100 Oxygen Delivery Method Room Air Oxygen Flow Rate 0 Narrative Exam Narrative: General adult female alert oriented no acute distress Abdomen soft nontender nondistended Objective Labs Result Diagrams: 01/25/20 06:24 01/25/20 06:24 Labs: Laboratory Results - last 24 hr 01/24/20 01/24/20 01/24/20 14:55 14:55 14:55 WBC 6.0 RBC 3.69 L Hgb 6.7 L* Hct 22.9 L MCV 62.2 L MCH 18.1 L MCHC 29.1 L RDW 22.1 H Plt Count 300 Neut % (Auto) 45.0 L Lymph % (Auto) 44.0 H [place] % (Auto) 8.4 Eos % (Auto) 1.5 L Baso % (Auto) 1.1 Neut # (Auto) 2700 Lymph # (Auto) 2600 [place] # (Auto) 500 Eos # (Auto) 100 Baso # (Auto) 100 Platelet Estimate Adequate on smear RBC Morphology See below Hypochromasia 2+ H Poikilocytosis 1+ H Anisocytosis 2+ H Microcytosis 2+ H Spherocytes 1+ H Target Cells 1+ H Ovalocytes 2+ H Stomatocytes 1+ H PT 12.6 INR 1.1 APTT 31 Sodium 139 Potassium 3.9 Chloride 106 Carbon Dioxide 25 BUN 8 Creatinine 0.50 L Estimated GFR > 60.0 BUN/Creatinine Ratio 16.0 Glucose 99 Calcium 9.1 Magnesium Total Bilirubin 0.5 AST 23 ALT 12 Alkaline Phosphatase 96 Total Creatine Kinase 38 CK-MB (CK-2) TNP CK-MB (CK-2) Rel Index TNP Troponin I < 0.012 Total Protein 7.4 Albumin 4.1 Globulin 3.3 Albumin/Globulin Ratio 1.2 Amylase 138 H Lipase 140 TSH Ethyl Alcohol Blood Type Antibody Screen Crossmatch 01/24/20 01/24/20 01/24/20 14:55 14:55 14:55 WBC RBC Hgb Hct MCV MCH MCHC RDW Plt Count Neut % (Auto) Lymph % (Auto) [place] % (Auto) Eos % (Auto) Baso % (Auto) Neut # (Auto) Lymph # (Auto) [place] # (Auto) Eos # (Auto) Baso # (Auto) Platelet Estimate RBC Morphology Hypochromasia Poikilocytosis Anisocytosis Microcytosis Spherocytes Target Cells Ovalocytes Stomatocytes PT INR APTT Sodium Potassium Chloride Carbon Dioxide BUN Creatinine Estimated GFR BUN/Creatinine Ratio Glucose Calcium Magnesium Total Bilirubin AST ALT Alkaline Phosphatase Total Creatine Kinase CK-MB (CK-2) CK-MB (CK-2) Rel Index Troponin I Total Protein Albumin Globulin Albumin/Globulin Ratio Amylase Lipase TSH 1.39 Ethyl Alcohol < 10 Blood Type O Positive Antibody Screen Negative Crossmatch See Detail 01/24/20 01/24/20 01/25/20 14:55 23:42 06:24 WBC RBC Hgb 7.6 L Hct 25.0 L MCV MCH MCHC RDW Plt Count Neut % (Auto) Lymph % (Auto) [place] % (Auto) Eos % (Auto) Baso % (Auto) Neut # (Auto) Lymph # (Auto) [place] # (Auto) Eos # (Auto) Baso # (Auto) Platelet Estimate RBC Morphology Hypochromasia Poikilocytosis Anisocytosis Microcytosis Spherocytes Target Cells Ovalocytes Stomatocytes PT INR APTT Sodium 140 Potassium 3.9 Chloride 108 H Carbon Dioxide 25 BUN 5 L Creatinine 0.50 L Estimated GFR > 60.0 BUN/Creatinine Ratio 10.0 Glucose 105 H Calcium 8.7 Magnesium 2.1 Total Bilirubin 0.7 AST 19 ALT 12 Alkaline Phosphatase 70 Total Creatine Kinase CK-MB (CK-2) CK-MB (CK-2) Rel Index Troponin I Total Protein 6.5 Albumin 3.5 Globulin 3.0 Albumin/Globulin Ratio 1.2 Amylase Lipase TSH Ethyl Alcohol Blood Type Antibody Screen Crossmatch 01/25/20 06:24 WBC 4.7 RBC 3.94 L Hgb 8.0 L Hct 26.5 L MCV 67.3 L D MCH 20.4 L MCHC 30.3 RDW 27.0 H Plt Count 259 Neut % (Auto) Not Reportable Lymph % (Auto) Not Reportable [place] % (Auto) Not Reportable Eos % (Auto) Not Reportable Baso % (Auto) Not Reportable Neut # (Auto) Lymph # (Auto) Not Reportable [place] # (Auto) Not Reportable Eos # (Auto) Baso # (Auto) Not Reportable Platelet Estimate RBC Morphology Hypochromasia Poikilocytosis Anisocytosis Microcytosis Spherocytes Target Cells Ovalocytes Stomatocytes PT INR APTT Sodium Potassium Chloride Carbon Dioxide BUN Creatinine Estimated GFR BUN/Creatinine Ratio Glucose Calcium Magnesium Total Bilirubin AST ALT Alkaline Phosphatase Total Creatine Kinase CK-MB (CK-2) CK-MB (CK-2) Rel Index Troponin I Total Protein Albumin Globulin Albumin/Globulin Ratio Amylase Lipase TSH Ethyl Alcohol Blood Type Antibody Screen Crossmatch Assessment & Plan Assessment & Plan narrative: Tiki is a 59-year-old female with the GI bleed hemodynamically stable required 1 unit transfusion of past 24 hours. Esophagoduodenoscopy is indicated. She was initially hesitant to proceed with the I procedure however on for reconsideration she has agreed to proceed. Scheduled for noon 01/26. Okay for regular diet now. NPO at midnight.
[2020-01-25 09:17] LABS: Neutrophils Absolute Manual 3196 /uL (3000-5900); Total Cells Counted 100
[2020-01-25 09:19] LABS: Anisocytosis 3+; Hypochromasia 2+; Microcytosis 2+; Rouleaux 2+
--- NOTE | 2020-01-25 09:29 | PM.PN.1 ---
Subjective Subjective Date Patient Seen: 01/25/20 Interval history: Tiki Evans is a 59-year-old female with a history of alcohol dependence who presented to the ED with progressive worsening abdominal pain. The patient is resting in bed and appears comfortable. She has had several bowel movements today none of which have been melanotic. She endorses epigastric abdominal pain and mid back pain. Discussed alcohol use in great detail and recommended abstaining indefinitely or cutting way back. Patient's daughter is in the room and quite teary-eyed. All questions were answered. Plan for EGD tomorrow and NPO at midnight. She has no other complaints and denies headache, vision changes, lightheadedness or dizziness, shortness of breath, chest pain, abdominal pain, nausea, vomiting, fever, chills, dysuria, diarrhea or constipation. She is voiding and eliminating without difficulty. She is up ambulating minimally without assistance. Exam Vital Signs (past 8 hours): - 01/25/20 02:02 01/25/20 05:18 01/25/20 06:00 Temperature 98.7 F Pulse Rate 64 Respiratory Rate 16 Blood Pressure 112/71 Pulse Oximetry 100 100 100 01/25/20 07:41 Temperature 98.1 F Pulse Rate 67 Respiratory Rate 16 Blood Pressure 111/72 Pulse Oximetry 100 Oxygen Delivery Method Room Air Oxygen Flow Rate 0 Narrative Exam Narrative: General: Middle-aged female cachectic female lying in bed and in no acute distress, appears older than stated age well-developed, well-nourished, appropriately interactive HEENT: Normocephalic, atraumatic. External ears without defect. Pupils equal, round, and reactive to light. Anicteric sclerae, moist conjunctivae, and no lid lag. Oropharynx free of erythema and cobble stoning with moist mucosa. Neck: Supple with full range of motion. No lymphadenopathy or thyromegaly. Cardiovascular: Regular rate and rhythm without murmurs, rubs, or gallops appreciated. Pulmonary: Clear to auscultation bilaterally without crackles, wheezes, or rhonchi. Normal respiratory effort with no use of accessory muscles. Abdomen: Soft, bowel sounds present, mild tenderness to palpation in epigastrium and right upper quadrant, nondistended. No hepatosplenomegaly or masses appreciated. Extremities: No clubbing, cyanosis, or edema. Skin: Normal temperature, turgor, and texture; no rash, ulcers, or subcutaneous nodules appreciated. Neurological: Cranial nerves grossly intact. Psychiatric: Normal mood and affect. Alert and oriented to person, place, and time. Objective Labs Result Diagrams: 01/25/20 06:24 01/25/20 06:24 Labs: Laboratory Results - last 24 hr 01/24/20 01/24/20 01/24/20 14:55 14:55 14:55 WBC 6.0 RBC 3.69 L Hgb 6.7 L* Hct 22.9 L MCV 62.2 L MCH 18.1 L MCHC 29.1 L RDW 22.1 H Plt Count 300 Neut % (Auto) 45.0 L Lymph % (Auto) 44.0 H [place] % (Auto) 8.4 Eos % (Auto) 1.5 L Baso % (Auto) 1.1 Neut # (Auto) 2700 Lymph # (Auto) 2600 [place] # (Auto) 500 Eos # (Auto) 100 Baso # (Auto) 100 Total Counted Seg Neutrophils % Band Neutrophils % Lymphocytes % (Manual) Atypical Lymphs % Monocytes % (Manual) Eosinophils % (Manual) Basophils % (Manual) Neutrophils # (Manual) Platelet Estimate Adequate on smear Plt Morphology Comment RBC Morphology See below Hypochromasia 2+ H Poikilocytosis 1+ H Anisocytosis 2+ H Microcytosis 2+ H Spherocytes 1+ H Target Cells 1+ H Ovalocytes 2+ H Stomatocytes 1+ H Rouleaux PT 12.6 INR 1.1 APTT 31 Sodium 139 Potassium 3.9 Chloride 106 Carbon Dioxide 25 BUN 8 Creatinine 0.50 L Estimated GFR > 60.0 BUN/Creatinine Ratio 16.0 Glucose 99 Calcium 9.1 Magnesium Total Bilirubin 0.5 AST 23 ALT 12 Alkaline Phosphatase 96 Total Creatine Kinase 38 CK-MB (CK-2) TNP CK-MB (CK-2) Rel Index TNP Troponin I < 0.012 Total Protein 7.4 Albumin 4.1 Globulin 3.3 Albumin/Globulin Ratio 1.2 Amylase 138 H Lipase 140 TSH Ethyl Alcohol Blood Type Antibody Screen Crossmatch 01/24/20 01/24/20 01/24/20 14:55 14:55 14:55 WBC RBC Hgb Hct MCV MCH MCHC RDW Plt Count Neut % (Auto) Lymph % (Auto) [place] % (Auto) Eos % (Auto) Baso % (Auto) Neut # (Auto) Lymph # (Auto) [place] # (Auto) Eos # (Auto) Baso # (Auto) Total Counted Seg Neutrophils % Band Neutrophils % Lymphocytes % (Manual) Atypical Lymphs % Monocytes % (Manual) Eosinophils % (Manual) Basophils % (Manual) Neutrophils # (Manual) Platelet Estimate Plt Morphology Comment RBC Morphology Hypochromasia Poikilocytosis Anisocytosis Microcytosis Spherocytes Target Cells Ovalocytes Stomatocytes Rouleaux PT INR APTT Sodium Potassium Chloride Carbon Dioxide BUN Creatinine Estimated GFR BUN/Creatinine Ratio Glucose Calcium Magnesium Total Bilirubin AST ALT Alkaline Phosphatase Total Creatine Kinase CK-MB (CK-2) CK-MB (CK-2) Rel Index Troponin I Total Protein Albumin Globulin Albumin/Globulin Ratio Amylase Lipase TSH 1.39 Ethyl Alcohol < 10 Blood Type O Positive Antibody Screen Negative Crossmatch See Detail 01/24/20 01/24/20 01/25/20 14:55 23:42 06:24 WBC RBC Hgb 7.6 L Hct 25.0 L MCV MCH MCHC RDW Plt Count Neut % (Auto) Lymph % (Auto) [place] % (Auto) Eos % (Auto) Baso % (Auto) Neut # (Auto) Lymph # (Auto) [place] # (Auto) Eos # (Auto) Baso # (Auto) Total Counted Seg Neutrophils % Band Neutrophils % Lymphocytes % (Manual) Atypical Lymphs % Monocytes % (Manual) Eosinophils % (Manual) Basophils % (Manual) Neutrophils # (Manual) Platelet Estimate Plt Morphology Comment RBC Morphology Hypochromasia Poikilocytosis Anisocytosis Microcytosis Spherocytes Target Cells Ovalocytes Stomatocytes Rouleaux PT INR APTT Sodium 140 Potassium 3.9 Chloride 108 H Carbon Dioxide 25 BUN 5 L Creatinine 0.50 L Estimated GFR > 60.0 BUN/Creatinine Ratio 10.0 Glucose 105 H Calcium 8.7 Magnesium 2.1 Total Bilirubin 0.7 AST 19 ALT 12 Alkaline Phosphatase 70 Total Creatine Kinase CK-MB (CK-2) CK-MB (CK-2) Rel Index Troponin I Total Protein 6.5 Albumin 3.5 Globulin 3.0 Albumin/Globulin Ratio 1.2 Amylase Lipase TSH Ethyl Alcohol Blood Type Antibody Screen Crossmatch 01/25/20 06:24 WBC 4.7 RBC 3.94 L Hgb 8.0 L Hct 26.5 L MCV 67.3 L D MCH 20.4 L MCHC 30.3 RDW 27.0 H Plt Count 259 Neut % (Auto) Not Reportable Lymph % (Auto) Not Reportable [place] % (Auto) Not Reportable Eos % (Auto) Not Reportable Baso % (Auto) Not Reportable Neut # (Auto) Lymph # (Auto) Not Reportable [place] # (Auto) Not Reportable Eos # (Auto) Baso # (Auto) Not Reportable Total Counted 100 Seg Neutrophils % 65.0 Band Neutrophils % 3.0 Lymphocytes % (Manual) 16.0 L Atypical Lymphs % 2.0 H Monocytes % (Manual) 12.0 H Eosinophils % (Manual) 1.0 L Basophils % (Manual) 1.0 Neutrophils # (Manual) 3196 Platelet Estimate Plt Morphology Comment RBC Morphology See below Hypochromasia 2+ H Poikilocytosis Anisocytosis 3+ H Microcytosis 2+ H Spherocytes Target Cells Ovalocytes Stomatocytes Rouleaux 2+ H PT INR APTT Sodium Potassium Chloride Carbon Dioxide BUN Creatinine Estimated GFR BUN/Creatinine Ratio Glucose Calcium Magnesium Total Bilirubin AST ALT Alkaline Phosphatase Total Creatine Kinase CK-MB (CK-2) CK-MB (CK-2) Rel Index Troponin I Total Protein Albumin Globulin Albumin/Globulin Ratio Amylase Lipase TSH Ethyl Alcohol Blood Type Antibody Screen Crossmatch Assessment & Plan Assessment & Plan narrative: 59-year-old female patient who presents to the ER for abdominal pain. The patient has had no health insurance for the past year and has not sought out medical care for ongoing abdominal pain she has experienced for 5 months. She has had increasing discomfort fatigue with abdominal cramping over the last month with an associated 20 lb weight loss. She describes melanotic stool with foul smell and is found to be severely anemic. 1. Acute likely upper GI bleed with acute blood loss anemia, present on admission. Active. -Patient presented with progressive worsening abdominal pain, indigestion, abdominal cramping, 20 lb weight loss, fatigue, and melanotic stool with occasional bright red blood. Of note, patient has history of hemorrhoids. -Patient has a history of constipation and had colonoscopy 1 year ago that was reportedly unremarkable. -CT abdomen and pelvis with contrast demonstrated normal appearance of solid organ, no ductal dilatation, colon appears normal in thickness and caliber with general colonic obstipation. -Initial hemoglobin 6.7 and MCV 62.2. Received 1 unit PRBC. Goal transfusion hemoglobin < 7.0. Continue to monitor H&H daily and more frequently of recurrence of melena. -Initiated bowel regimen with Colace 100 mg twice daily, polyethylene glycol 17 g daily and bisacodyl suppository as needed. -Continue ferrous gluconate 324 mg daily to replete iron stores associated with acute blood loss. -Continue to monitor closely on telemetry. Patient is currently hemodynamically stable without overt signs of bleeding. -Consulted general surgery, Dr. Morse, who plans to perform EGD tomorrow. NPO midnight. 2. Alcohol abuse, present on admission. Active. -Patient endorses history of drinking 3-4 beers daily. Last drink yesterday. -Patient denies history of alcohol withdrawal, DTs, or alcohol withdrawal seizures. No current symptoms of alcohol withdrawal. -Liver function tests are all within normal limits. -Ordered CIWA protocol and to notify provider of CIWA score 6 or greater. 3. Underweight with unintentional weight loss and protein calorie malnutrition, present on admission. Active. -Patient describes a 20 lb weight loss in the last month related to poor appetite secondary to abdominal discomfort. -BMI of 18.0. -Continue regular diet with Ensure supplementation. Patient is NPO midnight. -Consulted dietitian for weight loss and low BMI, pending. 4. Tobacco dependence in remission. Patient reports she quit smoking 2 months ago. She has a 63 pack year he smoking history. Denies shortness of breath cough or wheezing. Code status: Full code VTE prophylaxis: SCDs, chemical prophylaxis contraindicated. Disposition: Patient likely to discharge home in 1-2 days due pending upon EGD and stabilization of blood counts.
[2020-01-25] MEDS: FERROUS SULFATE 325 MG TABLET PO (10:47)
[2020-01-25] MEDS: DOCUSATE 100 MG CAPSULE PO ×2 (10:47→20:58)
[2020-01-25] MEDS: PANTOPRAZOLE 40 MG VIAL IV ×2 (10:48→20:59)
[2020-01-25] MEDS: ACETAMINOPHEN 325 MG TABLET 650 MG PO (14:00)
--- NOTE | 2020-01-25 14:21 | DIET.PN ---
Dietary Progress Note RD attempted to speak with patient today, pt was experiencing stomach cramps, with EGD scheduled for tomorrow, will check in with pt post-procedure on 01/26.
--- NOTE | 2020-01-25 15:48 | CM.DANOTE ---
Patient is a 59 year old female who was admitted on 01/24/20 for Stomach pains. Pt has [facility] and [employer] for insurance and her PCP is not listed. EMR was reviewed. Per MD, pt has a 20 lb weight loss in a month and chronic stomach pains for a while and had a GI bleed, anemic and needed a transfusion. Pt scheduled for EGD tomorrow. Pt with 3-4 beers a night and on CIWA protocol but scores have been zero. SW met bedside with pt and adult Dtr and explained role and pt states that her and her moved here a couple months ago and live on [address] near adult Dtr and adult son. Pt had been working at [employer] until about a month ago when she started feeling so bad and quit. Pt drives and is independent with ADL's at baseline. Pt is not established with PCP as her [facility] insurance is a barrier to the local clinics and Dtr plans to help pt switch to [facility] so she can establish with a PCP after d/c. Plan: SW to follow after EGD tomorrow to determine any d/c planning needs and confirm pt will be safe for return home with and family assist. MASOUD Mclain Discharge Planning/Care Management CM Discharge Assessment Start: 01/25/20 15:45 Freq: Status: Active Protocol: Document 01/25/20 15:46 BF (Rec: 01/25/20 15:48 BF [id number]) Discharge Planning Assessment Assigned Dryer Operator PHOEBE Bailey DPOA/Assigned Designee Name spouse Advance Directives? No History Provided By Patient,Family Member,Medical Record Has Patient been admitted in last 30 No days? Prior Living Arrangements Apartment/Condo Household Members family Type of transporation used prior to Drives own vehicle admit Independent with ADL's Yes Is patient alert and oriented? Yes Caregiver for Another No Comment Likely home pending EGD Barriers to Discharge No Discharge Plan Home Transportation Arrangement Family bedside and can transport home Additional Comment Waiting for EGD tomorrow Whiteboard Updated in Patient Room with Yes name and ext. # of Dryer Operator Review Status In Process Please Provide Date Initial DC 01/25/20 Assessment Was Performed Next Review Type Continued Stay Review
[2020-01-26] VITALS (15 sets, daily range): BP systolic 101–148; BP diastolic 69–93; PULSE 60–93; RESP 12–17; TEMP 36.6–38.2; O2SAT 90–100; BMI 17.2
[2020-01-26] MEDS: ACETAMINOPHEN 325 MG TABLET 975 MG PO (00:48)
[2020-01-26] MEDS: KETOROLAC 30 MG/ML VIAL IV (01:06)
[2020-01-26] MEDS: CYCLOBENZAPRINE 10 MG TABLET PO (01:06)
[2020-01-26 06:59] LABS: Hemoglobin 8.1 g/dL (12.0-16.0); Mean Corpuscular HGB Conc 31.3 % (30-36); Mean Corpuscular Hemoglobin 20.8 PG (26-34); Mean Corpuscular Volume 66.4 fL (80-100); Platelet Count 251 X10^3/uL (150-400); Red Blood Cell Count 3.91 X10^6/uL (4.0-5.2); Red Cell Distribution Width 26.4 % (11.6-14.8); White Blood Cell Count 5.7 X10^3/uL (4.5-11.0)
[2020-01-26 07:07] LABS: Add Manual Diff / Slide Review YES
[2020-01-26 07:42] LABS: Neutrophils Absolute Manual 3534 /uL (3000-5900); Total Cells Counted 100
[2020-01-26 07:43] LABS: Anisocytosis 2+; Hypochromasia 2+; Microcytosis 2+; Ovalocytes 1+; Poikilocytosis 1+; Spherocytes 1+
[2020-01-26] MEDS: PANTOPRAZOLE 40 MG VIAL IV (09:41)
--- NOTE | 2020-01-26 09:47 | PM.DS.1 ---
History of Present Illness History of Present Illness Date Patient Seen: 01/26/20 Chief complaint: Stomach pain, weight loss Narrative: Written by Cole IRBY: Ms. Tiki Evans is a 59-year-old female with no significant history medical problems who presents to the ER for worsening abdominal pain. The patient reports having abdominal pain for the last 5 months with a decline in general health over the last 1 month. She reports a 20 lb weight loss in last month related to poor oral intake secondary to abdominal pain. She has developed increasing fatigue, indigestion abdominal cramps and gassiness. She describes intermittent dark stools with foul odor and occasional bright red blood that she describes as perhaps a drop. Patient previously had a colonoscopy 1 year ago through [facility] at which time the patient reports the results were negative but was told that she should have a repeat exam in 6 months. Patient endorses a history drinking 3-4 beers per night and has had no complaints nausea vomiting or hematemesis. She has taken nothing at home stating she prefers a natural path. She reports no recent fevers or chills and has no nasal congestion or sore throat. She denies chest pain but has had fleeting episodes of flutters in her chest. She denies shortness of breath or cough and quit smoking 2 months ago before which she was smoking 1/2 pack per day since age 17. She has generalized abdominal discomfort nonfocal after having pain medication. She reports back pain that is worsened when she is tempting stool. She describes irregular stooling that comes in balls and is difficult to pass. 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 Upon arrival to the ER the patient is afebrile with temperature 98.3?, heart rate of 91, blood pressure 164/92, respirations of 12 saturating 91% on room air. Imaging of the abdominal pelvis is obtained with organs appearing normal with no ductal dilatation,: Is described as normal in thickness in caliber with general colonic obstipation. The need EKG is obtained which finds normal sinus rhythm with ventricular rate of 86, no ectopy or block, no evidence of ischemia with good R-wave progression. On laboratory analysis the patient is found to have white count of 6.0, hemoglobin of 6.7, hematocrit of 22.9 and platelets of 300. She has a PT of 12.6, INR 1.1 and PTT of 31. Her electrolytes are within normal limits and she has good renal function with a BUN of 8 and creatinine of 0.5. Her nonfasting glucose is 99. Her liver functions are all within normal range and has a amylase of 138 and lipase of 140. She has a negative troponin at less than 0.012 and her TSH is 1.39. The patient is admitted to the medicine service for GI bleeding with general surgery consult by Dr. Pickens initiated through the ER. Discharge Providers Provider Date of admission: 01/24/20 20:27 Discharge Date: 01/26/20 Primary care physician: MAHAMED Chavez Consults: 01/24/20 21:16 Consult to Dietitian, Adult Routine Comment: Reason For Exam: Alcohol abuse, GI bleed, 20 lb weight loss 01/24/20 21:17 Consult to Discharge Planning Routine Comment: 01/24/20 21:18 Consult to General Surgery Routine Comment: Consulting Provider: Negro Pickens Reason for consultation: GI bleeding Has provider been notified: Yes 01/24/20 21:56 Consult to Dietitian, Adult Routine Comment: Reason For Exam: unintentional weight loss Discharge provider: Olivia Topete DO Summary Hospital Course Discharge Diagnosis: 1. Acute GI bleed with acute blood loss anemia, secondary to gastritis, present on admission. Active. 2. Alcohol dependence, present on admission. Active. 3. Underweight with unintentional weight loss and protein calorie malnutrition, present on admission. Active. 4. Tobacco dependence in remission. Hospital Course: Tiki Evans is a 59-year-old female patient who presented to the ED for abdominal pain. The patient has had no health insurance for the past year and has not sought out medical care for ongoing abdominal pain she has experienced for 5 months. She has had increasing discomfort fatigue with abdominal cramping over the last month with an associated 20 lb weight loss. She describes melanotic stool with foul smell and is found to be severely anemic. 1. Acute GI bleed with acute blood loss anemia, secondary to gastritis, present on admission. Active. -Patient presented with progressive worsening abdominal pain, indigestion, abdominal cramping, 20 lb weight loss, fatigue, and melanotic stool with occasional bright red blood. Of note, patient has history of hemorrhoids. -Patient has a history of constipation and had colonoscopy 1 year ago that was reportedly unremarkable. -CT abdomen and pelvis with contrast demonstrated normal appearance of solid organ, no ductal dilatation, colon appears normal in thickness and caliber with general colonic obstipation. -Initial hemoglobin 6.7 and MCV 62.2. Received 1 unit PRBC. Transfusion goal hemoglobin < 7.0. Continued to monitor H&H daily. -H. pylori stool antigen is pending and is a send out and will be resulted in 3-5 days. -Continued bowel regimen with Colace 100 mg twice daily, polyethylene glycol 17 g daily and bisacodyl suppository as needed. -Continued ferrous gluconate 324 mg daily for 1 month to replete iron stores associated with acute blood loss. -Continued to monitor closely on telemetry. Patient is currently hemodynamically stable without overt signs of bleeding. -Consulted general surgery, Dr. Morse, who performed EGD which demonstrated gastritis and recommends PPI for 3 months. Discharged on Protonix 20 mg daily. 2. Alcohol dependence, present on admission. Active. -Patient endorses history of drinking 3-4 beers daily. Last drink yesterday. -Patient denies history of alcohol withdrawal, DTs, or alcohol withdrawal seizures. -Continued multivitamin, thiamine 100 mg daily and folate 1 mg daily. -Liver function tests are all within normal limits. -Continued to assess for alcohol withdrawal for which the patient had no symptoms throughout her entire hospitalization. 3. Underweight with unintentional weight loss and protein calorie malnutrition, present on admission. Active. -Patient describes a 20 lb weight loss in the last month related to poor appetite secondary to abdominal discomfort. -BMI of 18.0. -Continued regular diet with Ensure supplementation. -Consulted dietitian for weight loss and low BMI and we appreciate her time and recommendations. 4. Tobacco dependence in remission. -Patient reports she quit smoking 2 months ago. She has a 63 pack year he smoking history. Denies shortness of breath cough or wheezing. Exam Vital Signs (past 8 hours): - 01/26/20 06:17 01/26/20 08:29 01/26/20 08:37 Temperature 98.0 F 98.4 F Pulse Rate 87 76 Respiratory Rate 16 16 Blood Pressure 123/82 127/72 Pulse Oximetry 99 98 98 01/26/20 11:11 01/26/20 12:10 01/26/20 12:15 Temperature 100.8 F H 97.8 F Pulse Rate 93 H 87 74 Respiratory Rate 12 14 15 Blood Pressure 148/93 H 134/88 113/76 Pulse Oximetry 100 90 L 99 01/26/20 12:20 01/26/20 12:30 01/26/20 12:45 Temperature Pulse Rate 72 73 79 Respiratory Rate 15 15 16 Blood Pressure 113/76 118/79 101/69 Pulse Oximetry 98 96 95 01/26/20 13:15 Temperature Pulse Rate 70 Respiratory Rate Blood Pressure 140/90 Pulse Oximetry 99 Oxygen Delivery Method Room Air Oxygen Flow Rate 0 Narrative Exam Narrative: General: Middle-aged female cachectic female lying in bed and in no acute distress, appears older than stated age well-developed, well-nourished, appropriately interactive HEENT: Normocephalic, atraumatic. External ears without defect. Pupils equal, round, and reactive to light. Anicteric sclerae, moist conjunctivae, and no lid lag. Oropharynx free of erythema and cobble stoning with moist mucosa. Neck: Supple with full range of motion. No lymphadenopathy or thyromegaly. Cardiovascular: Regular rate and rhythm without murmurs, rubs, or gallops appreciated. Pulmonary: Clear to auscultation bilaterally without crackles, wheezes, or rhonchi. Normal respiratory effort with no use of accessory muscles. Abdomen: Soft, scaphoid, bowel sounds present, mild tenderness to palpation in epigastrium and right upper quadrant, nondistended. No hepatosplenomegaly or masses appreciated. Extremities: No clubbing, cyanosis, or edema. Skin: Normal temperature, turgor, and texture; no rash, ulcers, or subcutaneous nodules appreciated. Neurological: Cranial nerves grossly intact. Psychiatric: Normal mood and affect. Alert and oriented to person, place, and time. Objective Labs Result Diagrams: 01/26/20 06:50 01/25/20 06:24 Labs: Laboratory Results - last 24 hr 01/26/20 01/26/20 06:50 06:50 WBC 5.7 RBC 3.91 L Hgb 8.1 L Hct 26.0 L MCV 66.4 L MCH 20.8 L MCHC 31.3 RDW 26.4 H Plt Count 251 Neut % (Auto) Not Reportable Lymph % (Auto) Not Reportable [place] % (Auto) Not Reportable Eos % (Auto) Not Reportable Baso % (Auto) Not Reportable Lymph # (Auto) Not Reportable [place] # (Auto) Not Reportable Baso # (Auto) Not Reportable Total Counted 100 Seg Neutrophils % 59.0 Band Neutrophils % 3.0 Lymphocytes % (Manual) 25.0 Atypical Lymphs % 2.0 H Monocytes % (Manual) 9.0 Eosinophils % (Manual) 2.0 Neutrophils # (Manual) 3534 Plt Morphology Comment RBC Morphology See below Hypochromasia 2+ H Poikilocytosis 1+ H Anisocytosis 2+ H Microcytosis 2+ H Spherocytes 1+ H Ovalocytes 1+ H Magnesium 2.0 Discharge Plan Discharge Plan Patient Disposition: Home Discharge comment: You are being discharged home. You had gastritis due to your chronic alcohol use. Please try to cut back or abstain from alcohol indefinitely. A test has been sent to check for H pylori a bacteria that can cause stomach ulcers and gastritis which is pending and will resulted in 3-5 days. Please establish care with a primary care provider in the community for continued care, test results, medications and future preventative care. You have been prescribed omeprazole 20 mg daily to take for 3 months per General surgery's recommendations. You have also been prescribed iron 324 mg daily for the next 1 month to help replete your blood stores. Iron may be constipating and recommend Colace 100 mg twice daily and MiraLax 17 g daily to keep your bowel movements regular. You likely have irritable bowel syndrome, constipation predominant, which in combination with your alcohol use is causing your chronic abdominal pain. You have been prescribed multivitamin daily, thiamine 100 mg daily and folic acid 1 mg daily to help replete vitamin deficiencies associated with chronic alcohol use. Discharge orders & Medications Prescriptions: New omeprazole 20 mg capsule,delayed release(DR/EC) 20 mg PO DAILY Qty: 90 RF: 0 ferrous gluconate 324 mg (37.5 mg iron) tablet 324 mg PO DAILY Qty: 30 RF: 0 polyethylene glycol 3350 17 gram Powder In Packet 17 gm PO DAILY Qty: 30 RF: 0 docusate sodium [DOK] 100 mg Capsule 100 mg PO BID Qty: 60 RF: 0 Follow up/Referrals: Cole Valentine ARNP [Primary Care Provider] - Diet/Activity/Treatments Diet: Regular Activity: Activity as tolerated Skin/Wound/Dressing Care Report to your healthcare provider any signs of infection, such as:: increased pain Visit Report/Discharge Packet Instructions: Alcohol Use Disorder, DI for Gastritis, Omeprazole Discharge Data Primary Care Provider: Cole Valentine Attending Provider: Cole Valentine Admit Date/Time: 01/24/20 20:27
--- NOTE | 2020-01-26 11:09 | PC.NURSE ---
Addendum entered by Sharron Salas R.N. 01/26/20 14:21: pt back to unit at 1310 from ENDO, bedside report rec'd. VSS on arrival, Temp 100.0F temporal. Pt repeating statements, according to daughter pt is not herself yet, a little loopy. Pt cooperative, ice chips given. Aware that Dr. Topete is likely discharging pt today. Pt's daughter Jonatan in room and aware of pending discharge. Dr. Topete in to speak with pt around 1415. Also at that time, message left for Still Worker Helpervaldo Marshall to assess pt. Original Note: Day Shift- Pt NPO, left unit at 1100 via wheelchair for ENDO procedure. Daughter Jonatan at side.
[2020-01-26] MEDS: SODIUM CHLORIDE 0.9% 1,000 ML 84 ML IV (11:45)
--- NOTE | 2020-01-26 11:57 | PM.PREOP ---
Pre-operative Note Interval Note History & Physical reviewed/Exam performed by Physician: Yes Changes to H&P: No ASA Class (for procedural sedation): III
[2020-01-26] MEDS: LIDOCAINE 4% SOLN 50 ML 20 ML TOP (11:58)
[2020-01-26] MEDS: MIDAZOLAM 5 MG/5 ML VIAL IV ×2 (11:59→12:10)
[2020-01-26] MEDS: fentaNYL 250 MCG/5 ML INJ IV (11:59)
--- NOTE | 2020-01-26 12:09 | PM.OP.ENDO ---
Operative Date/Time/Diagnoses Date of procedure: 01/26/20 Time of procedure: 12:09 Pre-op diagnosis: GI bleed Post-op diagnosis: same Procedure & Clinicians Study performed: Esophagoduodenoscopy Same procedure as scheduled: Yes Indications: 59-year-old alcoholic woman presents with melanotic stool Surgeon: Basim Morse Procedure Notes SCOAP/Timeout: Performed Procedure in detail: Patient placed in left lateral decubitus position. Time out was performed. Procedural sedation was administered with Versed and Fentanyl. A bite block was placed. the scope was inserted into the mouth and advanced through the esophagus and into the stomach. The pylorus was intubated and the duodenum was normal. The scope was retroflexed within the stomach and there was a small hiatal hernia. Mild antral gastritis no ulceration. The scope was withdrawn into the esophagus the Z line was seen at 30 cm from the incisions. There was no genao's esophagitis or masses or strictures. Stomach was desufflated and scope removed. Patient tolerated procedure well. Sedation minutes: 6 Findings: gastritis Specimen(s): none sent Complications: none Impression: Gastritis Post-procedure Recommendations: Continue medication(s) (Protonix p.o. x8 weeks) Disposition: same day surgery
--- NOTE | 2020-01-26 14:16 | CM.DPC ---
Addendum entered by Lela Choi LPN 01/26/20 14:36: Dr. Topete noted concern re the followup pt might have as does not currently have PCP. Met then with pt's daughter Josefa: . Pt was lying with eyes closed, Josefa says she is tired after going for her procedure today. Josefa states that she knows her mother is eager to go home. Josfea and her live about 2 blocks from pt and her , on [facility]. She confirms her mother moved here 2 months ago and has yet to establish with a PCP. She says that she herself has [facility]/Medicaid plan and thus feels comfortable helping her mother get established with a provider with her [facility]/Medicaid plan. She is advised to use the [facility] if she cannot get into a provider in at timely way. Josefa says she is very aware of her mother's need for medical followup and likely reluctance to initiate same but says I will help her. I am on it! Dr. Topete is now meeting with pt and Josefa re the final d/c recommendations. P: home today when stable for same (Dr. Topete would like Joanna/commercial credit officer to see pt before d/c if at all possible and SANDY Mcdermott is alerting the commercial credit officer to same. Josefa will be driving pt back to her home at d/c. Original Note: DCP: continued: Spoke with Dr. Topete who stated that she was working on a d/c to home for pt.
--- NOTE | 2020-01-26 15:43 | DIET.PN ---
Dietary Progress Note Assessment: 59y F referred to nutrition for severe anemia (hgb 6.7), excessive etoh use (3-4 beers per night x 30y), GIB, and 20# wt loss. [place] [facility] [place] has extremely supportive daughter who was taking notes during entire visit. Pt has been experiencing abd px, cramping, bloody stools for several months, does not have PCP. EGD today found gastritis. Pt endorses terrible GERD and avoids many foods because of it (citrus, tomato, rehan) Pt has dentures so has difficulty with raw fruits and veggies. Usual Intake: Diet high in processed foods (canned items, boxed foods, hot dogs, deli meats, sweets, desserts) Typically starts drinking in late afternoon or on weekends. HT: 152.4cm WT: 40kg UBW: 60kg BMI: 17.2 Labs: hgb 6.7 --> 8 L post infusion Nutrition Diagnosis: Severe Acute PCM r/t gastritis aeb pt lost 20# recently c BMI 17.2 (severe for age), muscle and subcutaneous fat wasting system wide, etoh abuse. Interventions: Spent 30 minutes with patient and her daughter on dietary reccs for healing stomach lining and to promote healthy weight gain. 1. Avoid common irritants for gastritis and GERD including citrus, cooked tomato, caffeine, mint, greasy and fried foods. 2. Support tissue healing by eating orange fruits and veggies for Vit A, adequate protein in meat form (pt will avoid beans r/t gas) which will also supply zinc and vitamin C foods including pierre peppers. 3. Avoid etoh, pair watching football and destressing with a different activity. 4. Include more healthy fats in the form of: olive oil, avocado oil, avocado, nuts, nut butter, seeds, and seed butter. Diet Order: clears EER: 1500 (+300 to promote wt gain), 50g PRO (to promote weight gain) Monitoring/Evaluations: as needed
--- NOTE | 2020-01-26 18:29 | PC.NURSE ---
Assumed care of pt at 1500. Pt resting in bed. Awaiting Marine Erector consult. Marine Erector completed consult; see documentation for details. Discharge teaching completed with pt and dtr. Pt verbalized understanding of all instructions. Pt states she will establish care with a PCP as directed. Scripts provided. Pt verbalized she will fill prescriptions and take as directed. IV removed. Tele previously removed. Pt escorted off unit via w/c with family and student nurse. Pt left with all personal belongings in stable condition.
[2020-01-27 08:22] LABS: RBC Urine None Seen (0-5/HPF)
[2020-01-27 08:27] LABS: Appearance Urine UA CLEAR; Bilirubin Urine UA NEGATIVE (NEGATIVE); Color Urine UA YELLOW; Glucose Urine UA TRACE g/dL (Negative); Ketones Urine UA NEGATIVE (NEGATIVE); Leukocyte Esterase Urine UA NEGATIVE (NEGATIVE); Nitrite Urine UA NEGATIVE (Negative); Occult Blood Urine UA NEGATIVE (Negative); Protein Urine UA NEGATIVE (Negative); Urobilinogen Urine UA 0.2 E.U./dL (0.2)
[2020-01-27 08:43] LABS: Amorphous Sediment Urine 1+; Bacteria Urine Occasional (0-1); Mucus Urine 3+ (Negative); Squamous Epithelial Cell Urine 10-30 /HPF (0-5/HPF); WBC Urine 1-5/HPF (0-5/HPF)
[2020-01-27 08:44] LABS: Culture Indicated Urine Cult Not Indicated
--- NOTE | 2020-02-14 14:05 | PC.NURSE ---
Late entry: NS stop time 01/26 2293
== END 2020-01-26 18:20 | disposition home or self-care (01) ==
LOC: ED 15:15 → AC 20:30
PROVIDERS: Internal Medicine; Surgery; Admitting Provider Nurse Practitioner Adult Health; Emergency Provider Nurse Practitioner Family; PCP Nurse Practitioner Adult Health; Referring Provider Nurse Practitioner Family; Visit Provider Nurse Practitioner Adult Health
PROC: 0DJ08ZZ Inspection of Upper Intestinal Tract, Via Natural or Artificial Opening Endoscopic (ICD-10-PCS; CPT 43235; principal; 2020-01-26 11:30)
DX: K29.70 Gastritis, unspecified, without bleeding (principal); R10.9 Unspecified abdominal pain; K44.9 Diaphragmatic hernia without obstruction or gangrene; F10.10 Alcohol abuse, uncomplicated; R63.4 Abnormal weight loss; Z87.891 Personal history of nicotine dependence; D62 Acute posthemorrhagic anemia
CPT/HCPCS: 43235; 36415; 36430; 74177; 80053; 80320; 81001; 81003; 82150; 82550; 83690; 83735; 84443; 84484; 85014; 85018; 85025; 85610; 85730; 86677; 86850; 86900; 86901; 93005; 96361; 96374; 96375; 96376; 99224; 99285; G0378; P9016; C9113; J1170; J1885; J2250; J2405; J3010; Q9967

== ENCOUNTER 2025-11-12 10:45 | Emergency (ER) | payer MEDICARE, SELFPAY ==
[2020-01-24 21:46] VITALS: BMI 18.0
--- NOTE | 2025-11-12 11:12 | ED_ITS ---
HPI - Neck Pain/Injury General Chief Complaint: Neck Pain/Injury Stated Complaint: Neck/R shoulder pain Time Seen by Provider: 11/12/25 11:10 History of Present Illness HPI Narrative: Patient is a 65-year-old female history of colon cancer presenting to day with sudden onset of right-sided neck pain. She reports that she was lying in bed tossing and turning trying to get some rest when suddenly the right side of her neck started hurting. She has no numbness tingling or weakness in her arm or face. It does not 1 particular spot it hurts whenever she moves it comes and goes in intensive ice. She does have ongoing back spasm she thinks that this might be a neck spasm. She did not fall Related Data Previous Rx's ?Medication ?Instructions ?Recorded docusate sodium 100 mg capsule 100 mg PO BID #60 caps 01/26/20 (DOK) ferrous gluconate 324 mg (37.5 mg 324 mg PO DAILY #30 tabs 01/26/20 iron) tablet folic acid 1 mg tablet 1 mg PO DAILY #30 tabs 01/26 multivitamin (Tab-A-Ilene tablet) 1 tab PO DAILY #30 ta bs 01/26/20 omeprazole 40 mg capsule,delayed 40 mg PO DAILY #30 ca ps 01/26/20 release polyethylene glycol 3350 17 gram 17 gm PO DAILY #30 ea 01/26/20 oral powder packet thiamine HCl (vitamin B1) 100 mg 100 mg PO DAILY #30 t abs 01/26/20 tablet (Vitamin B-1) acetaminophen 300 mg-codeine 15 mg 1 tab PO QID PRN pa in #14 tabs 11/12/25 tablet cyclobenzaprine 5 mg tablet 5 mg PO TID PRN muscle spa sm #10 11/12/25 tabs Allergies Allergy/AdvReac Type Severity Reaction Status Date / Time No Known Drug Allergies Allergy Verified 11/12/25 11:19 Patient History Medical History Postmenopausal Constipation Surgical History History of colonoscopy Family History Mother Cancer Lung disease Smoker Father Schizophrenia Brother Homeless Schizophrenia Substance abuse Social History household members: family Smoking Status: Former smoker Tobacco: How many years used: 40 alcohol intake: current alcohol intake frequency: 3 or more drinks per day Exam Initial Vital Signs Initial Vital Signs: Vital Signs Temperature 97.9 F 11/12/25 11:13 Pulse Rate 83 11/12/25 11:13 Respiratory Rate 16 11/12/25 11:13 Blood Pressure 159/85 H 11/12/25 11:13 Pulse Oximetry 100 11/12/25 11:13 Oxygen Delivery Method Room Air 11/12/25 11:13 GENERAL: Alert 65-year-old female and in [no acute] distress. HEENT: Head atraumatic,EOMI, pupils reactive, face symmetric, [moist] mucous membranes NECK: No vertebral tenderness tender over right side definitely worse when she turns her head to the right, CARDIOVASCULAR: Regular rate and rhythm without murmurs, rubs or gallops. RESPIRATORY: Breath sounds equal bilaterally, no wheezes rales or rhonchi. ABDOMEN: Soft, nontender. Normoactive bowel sounds all 4 quadrants. No guarding or rebound. EXTREMITIES: Normal range of motion, no clubbing or edema. Neurovascularly intact NEUROLOGICAL: Alert and oriented x4.Normal gait and speech. Cranial nerves II through XII grossly intact. Automation Lead strength equal bilaterally SKIN: Warm, dry, no laceration, no petechiae, no rashes or lesions. Course Orders Ordered: ED Orders 11/12/25 11:00 CBC Auto Diff [Complete Blood Count AUTO DIFF] Stat CMP [Comprehensive Metabolic Panel] Stat 11/12/25 12:24 CT angio head and neck Stat Discontinued Medications Cyclobenzaprine HCl (Cyclobenzaprine 10 Mg Tablet) 5 mg PO NOW ONE Stop: 11/12/25 11:11 Last Admin: 11/12/25 11:26 Dose: 5 mg Documented By: LUCIANO Acetaminophen (Ofirmev) 1,000 mg in 100 mls @ 400 mls/hr IV NOW ONE Stop: 11/12/25 11:24 Last Infusion: 11/12/25 11:37 Dose: Infused Documented By: Admin: 11/12/25 11:24 Dose: 400 mls/hr Documented By: LUCIANO Ketorolac Tromethamine (Ketorolac 30 Mg/Ml Vial) 15 mg IV NOW ONE Stop: 11/12/25 11:11 Last Admin: 11/12/25 11:22 Dose: 15 mg Documented By: LUCIANO Vital Signs Vital signs: Vital Signs - 8 hr 11/12/25 11:13 Temperature 97.9 F Pulse Rate 83 Respiratory Rate 16 Blood Pressure 159/85 H Pulse Oximetry 100 Oxygen Delivery Method Room Air MDM - Neck Pain/Injury Lab Data 11/12/25 11:00 11/12/25 11:00 Labs: Lab Results 11/12/25 Range/Units 11:00 WBC 7.7 (4.5-11.0) X10^3/uL RBC 5.31 H (4.0-5.2) X10^6/uL Hgb 14.1 (12.0-16.0) g/dL Hct 41.4 (36-46) % MCV 78.0 L (80-100) fL MCH 26.5 (26-34) PG MCHC 34.0 (30-36) % RDW 13.7 (11.6-14.8) % Plt Count 232 (150-400) X10^3/uL Neut % (Auto) 70.7 (50-75) % Lymph % (Auto) 21.0 L (25-40) % [place] % (Auto) 6.8 (3-14) % Eos % (Auto) 0.9 L (2-4) % Baso % (Auto) 0.6 (0-2) % Neut # (Auto) 5400 (3657-3419) /uL Lymph # (Auto) 1600 (7321-5035) /uL [place] # (Auto) 500 (0-900) /uL Eos # (Auto) 100 (0-450) /uL Baso # (Auto) 0 (0-100) /uL Sodium 139 (137-145) mmol/L Potassium 4.1 (3.4-5.1) mmol/L Chloride 105 (98-107) mmol/L Carbon Dioxide 24 (22-32) mmol/L BUN 12 (7-17) mg/dL Creatinine 0.66 (0.52-1.04) mg/dL Estimated GFR > 60 (>60) mL/min BUN/Creatinine Ratio 18.2 (6-22) Glucose 107 H (70-99) mg/dL Calcium 10.0 (8.4-10.2) mg/dL Total Bilirubin 0.7 (0.2-1.3) mg/dL AST 29 (14-36) IU/L ALT 27 (<35) IU/L Alkaline Phosphatase 73 (38-126) U/L Total Protein 8.4 H (6.3-8.2) g/dL Albumin 5.0 (3.5-5.0) g/dL Globulin 3.4 (1.7-4.1) g/dL Albumin/Globulin Ratio 1.5 (1.0-2.8) Imaging Data CTA - brain/neck: Radiologist's Impression: PROCEDURE: CT ANGIO HEAD AND NECK INDICATIONS: severe right neck pain r/o dissection TECHNIQUE: After the administration of intravenous contrast, 1 mm thick sections acquired from the aortic arch through the [place] of [place]. 3-dimensional wngrgww-pwspkcsyl-ikljoecjjg (MIP) and/or volume rendering reformats were acquired of the central intracranial vasculature and neck separately. For radiation dose reduction, the following was used: automated exposure control, adjustment of mA and/or kV according to patient size. COMPARISON: None. FINDINGS: Image quality: Diagnostic. Cerebral CT Angiogram: Internal carotid arteries: No acute findings. Intracranial ICA are patent with no significant stenosis. No occlusion. No aneurysm. Anterior cerebral arteries: Unremarkable. No significant stenosis. No occlusion. No aneurysm. Middle cerebral arteries: Unremarkable. No significant stenosis. No occlusion. No aneurysm. Posterior cerebral arteries: Unremarkable. No significant stenosis. No occlusion. No aneurysm. Basilar artery: Unremarkable. No significant stenosis. No occlusion. No aneurysm. Vertebral arteries: Unremarkable as visualized. Dural venous sinuses: Unremarkable given phase of enhancement. Other: Arterial phase appearance of the brain parenchyma is unremarkable. Neck CT Angiogram: Internal carotid arteries: Unremarkable. No significant stenosis. No dissection or occlusion. Common carotid arteries: Unremarkable. No significant stenosis. No dissection or occlusion. External carotid arteries: Unremarkable. No occlusion. Vertebral arteries: Unremarkable. No significant stenosis. No dissection or occlusion. Aortic Arch and Mediastinum: Partially visualized aortic arch unremarkable without evidence of aneurysm. Origins of the great vessels unremarkable. Other: Reversal of normal cervical lordosis. Severe multilevel degenerative changes. IMPRESSION: No significant intracranial arterial abnormality is seen. No significant abnormality is seen within the arteries of the neck. Any quantitative measurements of stenosis were performed using NASCET criteria. Dictated by: Lincoln Blake M.D. on 11/12/2025 at 13:11 Approved by: Lincoln Blake M.D. on 11/12/2025 at 13:15 [facility] Narrative Medical decision making narrative: Patient is 65-year-old female presenting today with sudden onset neck pain. No numbness tingling or weakness Differential diagnosis, muscle spasm carotid artery dissection Initially just tried Tylenol and Toradol and Flexeril however patient still continued to have quite a bit of pain. Blood work was checked in his overall reassuring CBC no leukocytosis or anemia CMP within normal limits CT head and neck angio no evidence of fracture dissection or thrombus Discussion with patient about management. She reports that she has had pretty bad reactions causing hallucinations to medication when she was in the hospital but she is not sure what it is she is hesitant to try anything else for pain. She does report that she has tolerated Tylenol with codeine before and would like that to go home. Pain does seem to be a bit better after time in the ED. Discharge Plan Departure Patient Disposition: Home Clinical Impression: Muscle spasms of neck Instructions: DI for Neck Pain Activity Restrictions/Additional Instructions: *You have been diagnosed with neck spasm *What to do: At this time increase activity as tolerated try heating pad light stretching *Continue to take medications as directed Motrin 600 mg every 6 hours for olaf-xj-byowxdie Tylenol with codeine 1 tablet every 6 hours only if needed for severe Flexeril 5 mg every 8 hours only if needed for muscle spasm *Follow up with your primary care provider in 2-3 days or call [phone] *Return to ER if you should have increasing pain weakness numbness tingling or any new, worsening or concerning symptoms CONTROLLED SUBSTANCE DISCHARGE (Narcotoic/benzodiazepine/Flexeril/Phenergan) 1. You have been prescribed narcotic medications, it does have acetaminophen/Tylenol/paracetamol in it, DO NOT TAKE MORE THAN 4,00mg in 24 hours of Tylenol. TRAMADOL DOES NOT CONTAIN TYLENOL 2. Please understand that we cannot provide further refills of narcotics, benzodiazepines or controlled substances through the ED and her pain management will need to be through your provider. 3. While on these medications you cannot drive or operate heavy machinery. 4. You cannot sign legal documents or perform any duties such as this. 5. As long as you're taking opiate pain medications he should also be taking a stool softener such as Colace, Dulcolax, MiraLAX or prune juice, to help avoid constipation. Prescriptions: New acetaminophen-codeine 300-15 mg tablet 1 tab PO QID PRN (Reason: pain) Qty: 14 0RF cyclobenzaprine 5 mg tablet 5 mg PO TID PRN (Reason: muscle spasm) Qty: 10 0RF No Action ferrous gluconate 324 mg (37.5 mg iron) tablet 324 mg PO DAILY Qty: 30 0RF polyethylene glycol 3350 17 gram Powder In Packet 17 gm PO DAILY Qty: 30 0RF docusate sodium [DOK] 100 mg Capsule 100 mg PO BID Qty: 60 0RF multivitamin [Tab-A-Ilene] Tablet 1 tab PO DAILY Qty: 30 0RF thiamine HCl (vitamin B1) [Vitamin B-1] 100 mg Tablet 100 mg PO DAILY Qty: 30 0RF folic acid 1 mg Tablet 1 mg PO DAILY Qty: 30 0RF omeprazole 40 mg capsule,delayed release(DR/EC) 40 mg PO DAILY Qty: 30 0RF Referrals: Cole Valentine ARNP [Primary Care Provider, Internal Medicine] Stand Alone Forms: Patient Portal/API
[2025-11-12 11:13] VITALS: BP 159/85; PULSE 83; RESP 16; TEMP 36.6; O2SAT 100
[2025-11-12] MEDS: KETOROLAC 30 MG/ML VIAL 15 MG IV (11:22)
[2025-11-12] MEDS: ACETAMINOPHEN IV 1,000 MG/100 ML VIAL 400 MG IV (11:24)
[2025-11-12] MEDS: CYCLOBENZAPRINE 10 MG TABLET 5 MG PO (11:26)
[2025-11-12 12:21] VITALS: PULSE 74; O2SAT 98
--- NOTE | 2025-11-12 12:24 | DI.CT.S_ITS ---
PROCEDURE: CT ANGIO HEAD AND NECK INDICATIONS: severe right neck pain r/o dissection TECHNIQUE: After the administration of intravenous contrast, 1 mm thick sections acquired from the aortic arch through the [place] of [place]. 3-dimensional nljntkf-nonmpkgfx-vtejzgyxvj (MIP) and/or volume rendering reformats were acquired of the central intracranial vasculature and neck separately. For radiation dose reduction, the following was used: automated exposure control, adjustment of mA and/or kV according to patient size. COMPARISON: None. FINDINGS: Image quality: Diagnostic. Cerebral CT Angiogram: Internal carotid arteries: No acute findings. Intracranial ICA are patent with no significant stenosis. No occlusion. No aneurysm. Anterior cerebral arteries: Unremarkable. No significant stenosis. No occlusion. No aneurysm. Middle cerebral arteries: Unremarkable. No significant stenosis. No occlusion. No aneurysm. Posterior cerebral arteries: Unremarkable. No significant stenosis. No occlusion. No aneurysm. Basilar artery: Unremarkable. No significant stenosis. No occlusion. No aneurysm. Vertebral arteries: Unremarkable as visualized. Dural venous sinuses: Unremarkable given phase of enhancement. Other: Arterial phase appearance of the brain parenchyma is unremarkable. Neck CT Angiogram: Internal carotid arteries: Unremarkable. No significant stenosis. No dissection or occlusion. Common carotid arteries: Unremarkable. No significant stenosis. No dissection or occlusion. External carotid arteries: Unremarkable. No occlusion. Vertebral arteries: Unremarkable. No significant stenosis. No dissection or occlusion. Aortic Arch and Mediastinum: Partially visualized aortic arch unremarkable without evidence of aneurysm. Origins of the great vessels unremarkable. Other: Reversal of normal cervical lordosis. Severe multilevel degenerative changes. IMPRESSION: No significant intracranial arterial abnormality is seen. No significant abnormality is seen within the arteries of the neck. Any quantitative measurements of stenosis were performed using NASCET criteria. Dictated by: Lincoln Blake M.D. on 11/12/2025 at 13:11 Approved by: Lincoln Blake M.D. on 11/12/2025 at 13:15
[2025-11-12 12:30] VITALS: PULSE 82; O2SAT 96
[2025-11-12 12:39] LABS: Add Manual Diff / Slide Review NO; Hematocrit 41.4 % (36-46); Hemoglobin 14.1 g/dL (12.0-16.0); Lymphocytes Absolute Auto 1600 /uL (1100-4500); Mean Corpuscular HGB Conc 34.0 % (30-36); Mean Corpuscular Hemoglobin 26.5 PG (26-34); Mean Corpuscular Volume 78.0 fL (80-100); Platelet Count 232 X10^3/uL (150-400)
[2025-11-12 12:43] LABS: Alanine Aminotransferase 27 IU/L (<35); Albumin 5.0 g/dL (3.5-5.0); Albumin Globulin Ratio 1.5 (1.0-2.8); Alkaline Phosphatase 73 U/L (38-126); Blood Urea Nitrogen 12 mg/dL (7-17); Calcium 10.0 mg/dL (8.4-10.2); Carbon Dioxide 24 mmol/L (22-32); Chloride 105 mmol/L (98-107); Estimated Glomerular Filt Rate > 60 mL/min (>60); Globulin 3.4 g/dL (1.7-4.1); Glucose 107 mg/dL (70-99); HEMOLYSIS < 15 (0-50); Potassium 4.1 mmol/L (3.4-5.1); Sodium 139 mmol/L (137-145); Total Protein 8.4 g/dL (6.3-8.2)
[2025-11-12 13:00] VITALS: PULSE 76; O2SAT 98
[2025-11-12 13:30] VITALS: PULSE 73; O2SAT 97
[2025-11-12 14:00] VITALS: BP 142/83; PULSE 73; O2SAT 95
== END 2025-11-12 14:10 | disposition home or self-care (01) ==
PROVIDERS: Emergency Provider Emergency Medicine; PCP Nurse Practitioner Adult Health
DX: M62.838 Other muscle spasm (principal); M25.511 Pain in right shoulder
CPT/HCPCS: 36415; 70496; 70498; 80053; 85025; 96374; 96375; 99284; J0131; J1885; Q9967